=== PATIENT | female | born 1940 | race Caucasian/White ===

== ENCOUNTER 2019-09-10 11:12 | Observation (INO) | payer MEDICARE, BC ==
--- OUTSIDE RECORDS SUMMARY | 2019-09-10 11:39 | XMS REPORT | Continuity of Care Document ---
:1940 External Reference #:[id number] Author Name Bowen Chin MD Address [address] [place] [address] Care Team Providers Name Role Phone Celia Moraes M.D. - Magnetic Care Team Information Qlikview Developer [phone] Resonance Imaging (MRI) Nunu Dotson F.N.P. - Family Care Team Information Qlikview Developer Problems Active Problems Provider Date Retention of urine ESPERANZA Otto Onset: 09/09/2017 History of chronic urinary tract infection Ralph Jason MD Onset: 08/2016 Microscopic hematuria Ralph Jason MD Onset: 07/19/2016 Nocturia Ralph Jason MD Onset: 01/29/2016 Atrophic vaginitis Ralph Jason MD Onset: 11/25/2014 Mixed urinary incontinence Ralph Jason MD Onset: 11/25/2014 Midline cystocele Ralph Jason MD Onset: 11/25/2014 Urinary Urgency Ralph Jason MD Onset: 11/25/2014 Nocturia Ralph Jason MD Onset: 11/25/2014 Backache Ralph Jason MD Onset: 11/25/2014 Urinary tract infectious disease Ralph Jason MD Onset: 11/25/2014 Social History Type Date Description Comments Sex Unknown Tobacco Use Start: Unknown Never Smoked Cigarettes ETOH Use Patient denies alcohol use Tobacco Use Start: Unknown Patient has never smoked Smoking Status Reviewed: 06/14/19 Patient has never smoked Allergies, Adverse Reactions, Alerts Active Allergies Reaction Severity Comments Date Codeine Nausea and Vomiting 11/25/2014 Sulfa Nausea and Vomiting 11/25/2014 Ultram Nausea and Vomiting 11/25/2014 Medications Active Medications SIG Qnty Indications Ordering Date Provider Doxycycline Hyclate 1 by mouth 14caps Ralph Verduzco 06/14/2019 100mg Capsules twice a day x MD Casie 7 days Myrbetriq 1 by mouth 30tabs R35.1 Bowen Marques 05/01/2019 25mg Tablets ER 24HR every day MD Elsy Oxybutynin Chloride ER 1 by mouth 90tabs [facility] 03/08/2017 10mg Tablets every day MD Casie ER 24HR Ciprofloxacin HCL 1 by mouth 30tabs N39.0 [facility] 07/19/2016 250mg Tablets twice a day x MD Casie 3 days for sx uti, december repeat Ranitidine HCL Santhosh Landry, 150mg Tablets M.D. Rbwgg-0-Ikas Ethyl Esters [facility], 1gm M.DFarideh Capsules Meclizine HCL LoboftNunu farfan, 25mg Tablets F.N.P. Atorvastatin Calcium [facility], 20mg Tablets M.D. Cartia XT [facility], 120mg Caps ER 24HR M.DFarideh Butalbital/Acetaminophen/Ca Unknown ffeine 50-300-40mg Capsules Losartan Potassium take 1 tablet Unknown 50mg Tablets by mouth once daily Hydrochlorothiazide Rosalioishminerva, 12.5mg Tablets Charlie Valentine Buspirone HCL Unknown 15mg Tablets Duloxetine HCL Unknown 60mg Caps DR Alfonso Anastrozole 1 tablet Unknown 1mg Tablets every night Nortriptyline HCL 1 by mouth Unknown Capsules every day Tricor 1 by mouth Unknown 145mg Tablets every day Vitamin D (Ergocalciferol) Unknown 89492Brul Capsules Mobic 1 by mouth Unknown 7.5mg Tablets every day Synthroid 1 by mouth Unknown 75mcg Tablets every day Dexilant 30 mg qd Unknown 60mg Capsules DR Anna 1 by mouth Unknown 60mg Caps DR Alfonso every day History Medications Cefuroxime Axetil take 1 tablet by 14tabs [facility] 05/03/2019 - 250mg mouth twice daily MD Casie 06/13/2019 Tablets x 7 days Amoxicillin 1 cap orally in Bowen Chin, 05/01/2019 - 250mg office for 05/02/2019 Capsules procedure Cefuroxime Axetil take 1 tablet by izzy Verduzco 04/12/2019 - 250mg mouth twice daily MD Casie 04/30/2019 Tablets x 7 days Immunizations Description No Information Available Vital Signs Date Vital Result Comment 07/20/2019 11:28am Height 62 inches 5'2" Weight 127.00 lb Weight 57.607 kg BMI (Body Mass Index) 23.2 kg/m2 BP Systolic 120 mmHg BP Diastolic 67 mmHg Heart Rate 97 /min 06/14/2019 1:47pm BP Systolic 136 mmHg BP Diastolic 84 mmHg Heart Rate 85 /min Post Void Residual ml 50RAD Results Test Acquired Date Facility Test Result H/L Range Note 230 Ua Routine 07/20/2019 [facility] Ua Glucose Negative REF TO DR ADDRESS ON ORDER FOR (981)- - Ua Protein Negative Ua Nitrite Positive Ua Leuko 2+ Ua Blood Trace-intact Ua Color Not Entered Ua Ketones Negative Ua Clarity Not Entered Ua Specific [place] 1.020 1.003-1.030 Ua PH 7.0 5.0-7.5 Ua Bilirubin Negative Ua Urobilinogen 0.2 E.U./dL 0.0-1.0 Laboratory test 06/14/2019 [facility] Urine Culture SPECIMEN < 10k 1 finding POB FX# [id number] DESCRIP <SEE [phone] NOTE> 230 Ua Routine 06/14/2019 [facility] Ua Glucose Negative REF TO DR ADDRESS ON ORDER FOR (267)- - Ua Protein 1+ Ua Nitrite Negative Ua Leuko Trace Ua Blood 1+ Ua Color Not Entered Ua Ketones Negative Ua Clarity Not Entered Ua Specific [place] 1.025 1.003-1.030 Ua PH 6.5 5.0-7.5 Ua Bilirubin Negative Ua Urobilinogen 0.2 E.U./dL 0.0-1.0 Xray 06/14/2019 [facility] US Retroperitoneal med renal [address] [facility] [place] [id number] (Kidneys/Bladder) [phone] Laboratory 05/01/2019 Laboratory [place] Urine Culture SPECIMEN cefuroxime 2 test finding POB FX# [id number] DESCRIP [phone] <SEE NOTE> Urine 05/01/2019 [facility] Clinical History R31.21 Normal Cytology [address] [place] [address] [phone] Comments Sent to Rashaad Marques <SEE NOTE> Normal 3 Specimen Adequacy Satisfactory for <SEE NOTE> Normal 4 BodySite Voided - Clean C <SEE NOTE> Normal 5 Gross Description Received in a sp <SEE NOTE> Normal 6 CPTCode 41906 Normal PDF Report SEE IMAGE 230 Ua Routine 05/01/2019 [facility] Ua Glucose Negative REF TO DR ADDRESS ON ORDER FOR (573)- - Ua Protein 2+ Ua Nitrite Positive Ua Leuko 3+ Ua Blood 2+ Ua Color Not Entered Ua Ketones Negative Ua Clarity Not Entered Ua Specific [place] 1.020 1.003-1.030 Ua PH 7.0 5.0-7.5 Ua Bilirubin Negative Ua Urobilinogen 0.2 E.U./dL 0.0-1.0 Laboratory test 04/10/2019 Laboratory [place] Urine SPECIMEN cefuroxime 7 finding POB FX# [id number] Culture DESCRIP <SEE [phone] NOTE> 230 Ua Routine 04/10/2019 [facility] Ua Glucose Negative REF TO DR ADDRESS ON ORDER FOR (953)- - Ua Protein 1+ Ua Nitrite Negative Ua Leuko 1+ Ua Blood 2+ Ua Color Not Entered Ua Ketones Negative Ua Clarity Not Entered Ua Specific [place] 1.020 1.003-1.030 Ua PH 6.0 5.0-7.5 Ua Bilirubin Negative Ua Urobilinogen 0.2 E.U./dL 0.0-1.0 1 SPECIMEN DESCRIPTION URINE, COLLECTION METHOD NOT SPECIFIED CULTURE RESULTS <10,000 CFU/ML REPRESENTING URETHRAL ESMER REPORT STATUS FINAL 06/15/2019 2 SPECIMEN DESCRIPTION MIDSTREAM URINE,CLEAN CATCH CULTURE RESULTS >100,000 CFU/ML KLEBSIELLA PNEUMONIAE REPORT STATUS FINAL 05/03/2019 ORGANISM KLEBSIELLA PNEUMONIAE METHOD MONICA AMIKACIN <=2 SUSCEPTIBLE AMOXICILLIN/CLAVULANIC AC <=2/1 SUSCEPTIBLE AMPICILLIN 16 RESISTANT ISOLATES SUSCEPTIBLE TO AMPICILLIN ARE ALSO SUSCEPTIBLE TO AMOXICILLIN. CEFAZOLIN <=4 SUSCEPTIBLE FOR UNCOMPLICATED UTI'S,CEFAZOLIN MONICA RESULTS LESS THAN OR EQUAL TO 16 MCG/ML PREDICT SUSCEPTIBILITY OF THE FOLLOWING ORAL CEPHALOSPORINS:CEFACLOR,CEFDINIR, CEFPODOXIME,CEFPROZIL,CEFUROXIME AND CEPHALEXIN. IMPORTANT NOTE FOR COMPLICATED INFECTIONS SUCH UROSEPSIS CEFAZOLIN SHOULD HAVE A MONICA OF LESS THAN OR EQUAL TO 2 TO BE CONSIDERED SUSCEPTIBLE. CONTACT MICROBIOLOGY FOR FURTHER TESTING IF WARRANTED. CEFEPIME <=1 SUSCEPTIBLE CEFOXITIN <=4 SUSCEPTIBLE CEFTAZIDIME <=1 SUSCEPTIBLE CEFTRIAXONE <=1 SUSCEPTIBLE CIPROFLOXACIN <=0.25 SUSCEPTIBLE GENTAMICIN <=1 SUSCEPTIBLE LEVOFLOXACIN <=0.12 SUSCEPTIBLE MEROPENEM <=0.25 SUSCEPTIBLE NITROFURANTOIN 32 SUSCEPTIBLE PIPERACILLIN/TAZOBACTAM <=4 SUSCEPTIBLE TETRACYCLINE <=1 SUSCEPTIBLE TOBRAMYCIN <=1 SUSCEPTIBLE TRIMETH/SULFA <=1/19 SUSCEPTIBLE ERTAPENEM <=0.5 SUSCEPTIBLE 3 Sent to [employer] for professional services: [address] [place] [address] 4 Satisfactory for evaluation. 5 Voided - Clean Catch 6 Received in a specimen container, labeled with the patients name and , is Cloudy Yellow fluid consistent with urine, measuring approximately 40 ml. 7 SPECIMEN DESCRIPTION MIDSTREAM URINE,CLEAN CATCH CULTURE RESULTS >100,000 CFU/ML KLEBSIELLA PNEUMONIAE REPORT STATUS FINAL 04/12/2019 ORGANISM KLEBSIELLA PNEUMONIAE METHOD MONICA AMIKACIN <=2 SUSCEPTIBLE AMOXICILLIN/CLAVULANIC AC 4/2 SUSCEPTIBLE AMPICILLIN 16 RESISTANT ISOLATES SUSCEPTIBLE TO AMPICILLIN ARE ALSO SUSCEPTIBLE TO AMOXICILLIN. CEFAZOLIN <=4 SUSCEPTIBLE FOR UNCOMPLICATED UTI'S,CEFAZOLIN MONICA RESULTS LESS THAN OR EQUAL TO 16 MCG/ML PREDICT SUSCEPTIBILITY OF THE FOLLOWING ORAL CEPHALOSPORINS:CEFACLOR,CEFDINIR, CEFPODOXIME,CEFPROZIL,CEFUROXIME AND CEPHALEXIN. IMPORTANT NOTE FOR COMPLICATED INFECTIONS SUCH UROSEPSIS CEFAZOLIN SHOULD HAVE A MONICA OF LESS THAN OR EQUAL TO 2 TO BE CONSIDERED SUSCEPTIBLE. CONTACT MICROBIOLOGY FOR FURTHER TESTING IF WARRANTED. CEFEPIME <=1 SUSCEPTIBLE CEFOXITIN <=4 SUSCEPTIBLE CEFTAZIDIME <=1 SUSCEPTIBLE CEFTRIAXONE <=1 SUSCEPTIBLE CIPROFLOXACIN <=0.25 SUSCEPTIBLE GENTAMICIN <=1 SUSCEPTIBLE LEVOFLOXACIN <=0.12 SUSCEPTIBLE MEROPENEM <=0.25 SUSCEPTIBLE NITROFURANTOIN 128 RESISTANT PIPERACILLIN/TAZOBACTAM <=4 SUSCEPTIBLE TETRACYCLINE 2 SUSCEPTIBLE TOBRAMYCIN <=1 SUSCEPTIBLE TRIMETH/SULFA <=1/19 SUSCEPTIBLE ERTAPENEM <=0.5 SUSCEPTIBLE Procedures Date Code Description Status 06/14/2019 16330 Ultrasound Retro Renal Real Time With Image Tech Comp Completed 06/14/2019 96722 Ultrasound Retro Renal Real Time With Image Tech Comp Completed 05/01/2019 98641 Cystourethroscopy, Separate Procedure Completed 04/10/2019 09219 Bladder Scan, Post Voiding Residual Urine Completed Medical Devices Description No Information Available Encounters Type Date Location Provider Dx Diagnosis Office Visit 07/20/2019 [facility] Bowen Chin, R31.21 Asymptomatic 11:20a Urology microscopic hematuria N39.0 Urinary tract infection, site not specified N81.11 Cystocele, midline R33.8 Other retention of urine R35.1 Nocturia N95.2 Postmenopausal atrophic vaginitis Office Visit 06/14/2019 1:40p [facility]/ A.M.PFarideh Cuevas R31.29 Other microscopic Urology ESPERANZA De La Garza hematuria N39.0 Urinary tract infection, site not specified Office Visit 04/10/2019 11:20a [facility]/ A.M.PFarideh Marques N81.11 Cystocele, Urology MD Elsy midline R33.8 Other retention of urine R35.1 Nocturia N95.2 Postmenopausal atrophic vaginitis R31.21 Asymptomatic microscopic hematuria Z87.440 Personal history of urinary (tract) infections Assessments Date Code Description Provider 07/20/2019 R31.21 Asymptomatic microscopic hematuria Bowen Chin MD 07/20/2019 N39.0 Urinary tract infection, site not specified Bowen Chin MD 07/20/2019 N81.11 Cystocele, midline Bowen Chin MD 07/20/2019 R33.8 Other retention of urine Bowen Chin MD 07/20/2019 R35.1 Nocturia Bowen Chin MD 07/20/2019 N95.2 Postmenopausal atrophic vaginitis Bowen Chin MD 06/14/2019 R31.21 Asymptomatic microscopic hematuria Bowen Chin MD 06/14/2019 R31.21 Asymptomatic microscopic hematuria [facility] 06/14/2019 R31.29 Other microscopic hematuria ESPERANZA Gardiner 06/14/2019 N39.0 Urinary tract infection, site not specified ESPERANZA Gardiner 05/01/2019 R31.21 Asymptomatic microscopic hematuria Leo Pineda MD 05/01/2019 N81.11 Cystocele, midline Bowen Chin MD 05/01/2019 R33.8 Other retention of urine Bowen Chin MD 05/01/2019 R35.1 Nocturia Bowen Chin MD 05/01/2019 N95.2 Postmenopausal atrophic vaginitis Bowen Chin MD 05/01/2019 R31.21 Asymptomatic microscopic hematuria Bowen Chin MD 04/10/2019 N81.11 Cystocele, midline Bowen Chin MD 04/10/2019 R33.8 Other retention of urine Bowen Chin MD 04/10/2019 R35.1 Nocturia Bowen Chin MD 04/10/2019 N95.2 Postmenopausal atrophic vaginitis Bowen Chin MD 04/10/2019 R31.21 Asymptomatic microscopic hematuria Bowen Chin MD 04/10/2019 Z87.440 Personal history of urinary (tract) infections Bowen Chin MD Plan of Treatment Future Appointment(s):08/17/2019 1:20 pm - Bowen Chin MD at [facility] Dwdbjmq56/13/2019 - Bowen Chin, MDR31.21 Asymptomatic microscopic hematuriaComments:Rescheduled for interval cystoscopy after treatment of current UTI.N39.0 Urinary tract infection, site not specifiedNew Labs:Urine Culture, Ordered: 07/20/19Comments:Sent urine cultureStart Cipro 250 mg PO BID today #14N81.11 Cystocele, midlineComments:Consider pelvic floor vpqfcjyP21.8 Other retention of urineComments:Advised times nfvweO72.1 NocturiaComments: Continue Oxybutinin XL 10 mg qd SPGConsider pelvic floor jykgvjyX67.2 Postmenopausal atrophic vaginitisAllFollow up:Cystoscopy 2 weeks. Functional Status Description No Information Available Mental Status Description No Information Available Referrals Description No Information Available
--- OUTSIDE RECORDS SUMMARY | 2019-09-10 11:39 | XMS REPORT | Continuity of Care Document ---
:1940 External Reference #:[id number] Author Name Migue Chase MD (transmitted by agent of provider Kelsy Baires) Address [address], [address] [place] [address] Care Team Providers Name Role Phone Kyle Henley MD - Internal Medicine Care Team Information Arresting Gear Operator [phone] Visiting Nurse Services [facility] - Care Team Information Arresting Gear Operator [facility] Celia Moraes M.D. - Internal Care Team Information Arresting Gear Operator [phone] Medicine Problems Active Problems Provider Date Instability of internal right knee prosthesis, Sarina Valentino M.D. Onset: 04/2018 subsequent encounter Social History Type Date Description Comments Sex Unknown Tobacco Use Start: Unknown Never Smoked Cigarettes Smoking Status Reviewed: 08/28/19 Never Smoked Cigarettes ETOH Use Denies alcohol use Tobacco Use Start: Unknown Patient has never smoked Recreational Drug Use Denies Drug Use Exercise Type/Frequency Does not exercise Limited by breathing issue Allergies, Adverse Reactions, Alerts Active Allergies Reaction Severity Comments Date Sulfa Antibiotics Nausea Moderate 01/05/2013 Codeine Nausea 08/28/2019 Ultram Nausea 08/28/2019 Medications Active Medications SIG Qnty Indications Ordering Date Provider Oxygen please use o2 at 1units R06.00 Migue Chase Misc 2l/min during MD 0 exertion and at night. pls provide pt with portable o2 concentrator [id number] Ethyl Esters 1 capsules 2 x/day Unknown 1gm 0 Capsules Meclizine HCL 1 tablet every 8 Unknown 25mg Tablets hours as needed 0 for vertigo Myrbetriq TK 1 T PO Q Day Unknown 25mg Tablets ER 24HR 0 Vitamin D2 1 2000 unit and 1 Unknown 2000Unit Tablets 5000 unit by mouth 0 everyday Tricor 1 by mouth every Unknown 145mg Tablets day 0 Synthroid 1 by mouth every Unknown 75mcg Tablets day 0 Oxybutynin Chloride ER 1 by mouth every Unknown 10mg day 0 Tablets ER 24HR Nortriptyline HCL 3 by mouth once Unknown 50mg Capsules daily 0 Nitrostat one sl q5min up to Unknown 0.4mg Tablets Sub 3 doses as needed 0 Mobic 1 by mouth every Unknown 7.5mg Tablets day 0 Losartan Potassium 1 by mouth every Unknown 50mg Tablets day 0 Lipitor one tab by mouth Unknown 20mg Tablets every night at 0 bedtime Hydrochlorothiazide 1 by mouth every Unknown 12.5mg day 0 Capsules Folic Acid 1 by mouth daily Unknown 400mcg Tablets 0 Fioricet 1 by mouth twice a Unknown 50-300-40mg Capsules day as needed 0 headache max 2 days/wk Diltiazem CD 1 by mouth every Unknown 120mg Caps ER 24HR day 0 Dexilant 1 by mouth every Unknown 60mg Capsules DR day 0 Cymbalta 2 by mouth every Unknown 30mg Caps DR Part day 0 Buspirone HCL take one tablet by Unknown 15mg Tablets mouth twice a day 0 Anastrozole 1 by mouth per day Unknown 1mg Tablets 0 Medications Administered in Office Medication SIG Qnty Indications Ordering Provider Date Depomedrol 40MG Brionna Bacon M.D. 06/11/2019 Injection Immunizations Description No Information Available Vital Signs Date Vital Result Comment 08/28/2019 9:28am Height 60 inches 5'0" Weight 128.00 lb Per pt, this morning Heart Rate 94 /min BP Systolic Sitting 142 mmHg Rue reg cuff BP Diastolic Sitting 80 mmHg Rue reg cuff O2 % BldC Oximetry 90 % On Ra BMI (Body Mass Index) 25.0 kg/m2 06/11/2019 2:40pm Height 60 inches 5'0" Weight 127.38 lb Heart Rate 82 /min BP Systolic Sitting 118 mmHg BP Diastolic Sitting 71 mmHg Respiratory Rate 16 /min Pain Level 0 O2 % BldC Oximetry 91 % BMI (Body Mass Index) 24.9 kg/m2 Results Description No Information Available Procedures Date Code Description Status 06/11/2019 Aspiration &/Or Inj Of Ganglion Cyst(S) Any Location Completed Medical Devices Description No Information Available Encounters Type Date Location Provider Dx Diagnosis Office Visit 06/11/2019 [facility] Brionna Bacon, M19.212 Secondary 1:45p at [facility].Justin osteoarthritis, left shoulder M67.412 Ganglion, left shoulder Assessments Date Code Description Provider 08/28/2019 R06.00 Dyspnea, unspecified Migue Chase MD 08/28/2019 G47.30 Sleep apnea, unspecified Migue Chase MD 06/11/2019 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 06/11/2019 M67.412 Ganglion, left shoulder Brionna Bacon M.D. Plan of Treatment 08/28/2019 - Migue Chase MDR06.00 Dyspnea, unspecifiedNew Medication:Oxygen - please use o2 at 2l/min during exertion and at night. pls provide pt with portable o2 concentratorComments:At this time we will do full pulmonary function test with a methacholine challenge test 6 minute walkand we will order a VQ scan lower extreme Dopplers and an overnight oximetry. we will [facility] to get the report of an echocardiogram. The patient did desaturate to 85% in the 6 minute walk at the clinic. Her desaturation was at fourth minute. Sheis recommended to use oxygen with activity.Follow up:1 month.G47.30 Sleep apnea, unspecifiedComments: She is using oxygen at night. She should exercise care when driving or operating heavy machinery. Functional Status Description No Information Available Mental Status Description No Information Available Referrals Description No Information Available
--- OUTSIDE RECORDS SUMMARY | 2019-09-10 11:39 | XMS REPORT | Continuity of Care Document ---
:1940 External Reference #:[id number] Author Name Rachel Garcia MD (transmitted by agent of provider Melody Jang) Address [address], [address] [place] [address] Care Team Providers Name Role Phone Kyle Henley MD - Internal Medicine Care Team Information Office Professionals [phone] Visiting Nurse Services [facility] - Care Team Information Office Professionals [facility] Celia Moraes M.D. - Internal Care Team Information Office Professionals [phone] Medicine Problems Active Problems Provider Date Instability of internal right knee prosthesis, Sarina Valentino M.D. Onset: 04/2018 subsequent encounter Social History Type Date Description Comments Sex Unknown ETOH Use Denies alcohol use Tobacco Use Start: Unknown Patient has never smoked Smoking Status Reviewed: 06/11/19 Patient has never smoked Allergies, Adverse Reactions, Alerts Active Allergies Reaction Severity Comments Date Sulfa Antibiotics Moderate 01/05/2013 Medications Active Medications SIG Qnty Indications Ordering Date Provider Amoxicillin 4 tablets 1 16caps Porter Frost, 02/12/2013 500mg Capsules hour before M.D. dental work Vitamin D2 1 by mouth Unknown 2000Unit Tablets everyday Tricor 1 by mouth Unknown 145mg Tablets every day Synthroid 1 by mouth Unknown 75mcg Tablets every day Oxybutynin Chloride ER 1 by mouth Unknown 10mg every day Tablets ER 24HR Nortriptyline HCL take one Unknown 50mg Capsules capsule at night Nitrostat one sl q5min up Unknown 0.4mg Tablets Sub to 3 doses as needed Mobic 1 by mouth Unknown 7.5mg Tablets every day Losartan Potassium 1 by mouth Unknown 50mg Tablets every day Lipitor one tab by Unknown 20mg Tablets mouth every night at bedtime Hydrochlorothiazide 1 by mouth Unknown 12.5mg every day Capsules Folic Acid Unknown 800mcg Tablets Fioricet 1 by mouth Unknown 50-300-40mg Capsules twice a day as needed headache max 2 days/wk Diltiazem CD 1 by mouth Unknown 120mg Caps ER 24HR every day Dexilant 1 by mouth Unknown 60mg Capsules DR every day Cymbalta 1 by mouth Unknown 60mg Caps DR Part every day Buspirone HCL take one tablet Unknown 15mg Tablets by mouth twice a day Anastrozole Unknown 1mg Tablets Medications Administered in Office Medication SIG Qnty Indications Ordering Provider Date Depomedrol 40MG Brionna Bacon M.D. 06/11/2019 Injection Immunizations Description No Information Available Vital Signs Date Vital Result Comment 06/11/2019 2:40pm Height 60 inches 5'0" Weight 127.38 lb Heart Rate 82 /min BP Systolic Sitting 118 mmHg BP Diastolic Sitting 71 mmHg Respiratory Rate 16 /min Pain Level 0 O2 % BldC Oximetry 91 % BMI (Body Mass Index) 24.9 kg/m2 05/19/2018 1:01pm Height 61 inches 5'1" Weight 225.00 lb BP Systolic 111 mmHg BP Diastolic 64 mmHg Respiratory Rate 16 /min Pain Level 4 BMI (Body Mass Index) 42.5 kg/m2 Results Description No Information Available Procedures Date Code Description Status 06/11/201958652 Aspiration &/Or Inj Of Ganglion Cyst(S) Any Location Completed Medical Devices Description No Information Available Encounters Type Date Location Provider Dx Diagnosis Office Visit 06/11/2019 [facility] Brionna Bacon, M19.212 Secondary 1:45p at [place] Charlie osteoarthritis, left shoulder M67.412 Ganglion, left shoulder Assessments Date Code Description Provider 06/11/2019 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 06/11/2019 M67.412 Ganglion, left shoulder Brionna Bacon M.D. Plan of Treatment 06/11/2019 - Brionna Bacon M.D.M19.212 Secondary osteoarthritis, left shoulderFollow up:Follow up: As [id number] Ganglion, left shoulder Functional Status Description No Information Available Mental Status Description No Information Available Referrals Description No Information Available
--- OUTSIDE RECORDS SUMMARY | 2019-09-10 11:39 | XMS REPORT | Continuity of Care Document ---
:1940 External Reference #:[id number] Author Name Bowen Chin MD Address [address] [place] [address] Care Team Providers Name Role Phone Celia Moraes M.D. - Magnetic Care Team Information Design Lead [phone] Resonance Imaging (MRI) Nunu Dotson F.N.P. - Family Care Team Information Design Lead [phone] Problems Active Problems Provider Date Retention of urine ESPERANZA Otto Onset: 09/09/2017 History of chronic urinary tract infection Ralph Jason MD Onset: 08/2016 Microscopic hematuria Ralph Jason MD Onset: 07/19/2016 Nocturia Ralph Jason MD Onset: 01/29/2016 Atrophic vaginitis Ralph aJson MD Onset: 11/25/2014 Mixed urinary incontinence Ralph [...] Medications SIG Qnty Indications Ordering Date Provider Myrbetriq 1 by mouth 30tabs R35.1 Bowen Marques 05/01/2019 25mg Tablets ER 24HR every day MD Elsy Oxybutynin Chloride ER 1 by mouth 90tabs [facility] 03/08/2017 10mg Tablets every day MD Casie ER 24HR Ranitidine HCL Santhosh Landry, 150mg Tablets M.DFarideh Bygsy-6-Peqc Ethyl Esters [place] [facility], 1gm M.DFarideh Capsules Meclizine HCL LoboftNunu farfan, 25mg Tablets F.N.P. Atorvastatin Calcium [facility], 20mg Tablets M.D. Cartia XT [facility], 120mg Caps ER 24HR M.DFarideh Butalbital/Acetaminophen/Ca Unknown ffeine 50-300-40mg Capsules Losartan Potassium take 1 tablet Unknown 50mg Tablets by mouth once daily Hydrochlorothiazide Alix, 12.5mg Tablets Charlie Valentine Buspirone HCL Unknown 15mg Tablets Duloxetine HCL Unknown 60mg Caps DR Alfonso Anastrozole 1 tablet Unknown 1mg Tablets every night Nortriptyline HCL 1 by mouth Unknown Capsules every day Tricor 1 by mouth Unknown 145mg Tablets every day Vitamin D (Ergocalciferol) Unknown [id number] Capsules Mobic 1 by mouth Unknown 7.5mg Tablets every day Synthroid 1 by mouth Unknown 75mcg Tablets every day Dexilant 30 mg qd Unknown 60mg Capsules DR Anna 1 by mouth Unknown 60mg Caps DR Alfonso every day History Medications Doxycycline Hyclate 1 by mouth twice a 14caps [facility] 06/14/2019 - day x 7 days MD Casie 08/16/2019 100mg Capsules Cefuroxime Axetil take 1 tablet by 14tabs [facility] 05/03/2019 - 250mg mouth twice daily MD Casie 06/13/2019 Tablets x 7 days Amoxicillin 1 cap orally in Bowen Chin, 05/01/2019 - 250mg office for 05/02/2019 Capsules procedure Cefuroxime Axetil take 1 tablet by izzy Verduzco 04/12/2019 - 250mg mouth twice daily MD Casie 04/30/2019 Tablets x 7 days Immunizations Description No Information Available Vital Signs Date Vital Result Comment 08/17/2019 1:28pm Height 62 inches 5'2" Weight 127.00 lb Weight 57.607 kg BMI (Body Mass Index) 23.2 kg/m2 BP Systolic 127 mmHg BP Diastolic 76 mmHg Heart Rate 102 /min 07/20/2019 11:28am Height 62 inches 5'2" Weight 127.00 lb Weight 57.607 kg BMI (Body Mass Index) 23.2 kg/m2 BP Systolic 120 mmHg BP Diastolic 67 mmHg Heart Rate 97 /min Results Test Acquired Date Facility Test Result H/L Range Note 230 Ua Routine 08/17/2019 [facility] Ua Glucose Negative REF TO DR ADDRESS ON ORDER FOR (315)- - Ua Protein Negative Ua Nitrite Positive Ua Leuko 1+ Ua Blood Negative Ua Color Not Entered Ua Ketones Negative Ua Clarity Not Entered Ua Specific [place] 1.020 1.003-1.030 Ua PH 6.5 5.0-7.5 Ua Bilirubin Negative Ua Urobilinogen 0.2 E.U./dL 0.0-1.0 Laboratory test 07/20/2019 [facility] Urine Culture SPECIMEN 1 finding POB FX# [id number] DESCRIP <SEE [phone] NOTE> 230 Ua Routine 07/20/2019 [facility] Ua Glucose Negative REF TO DR ADDRESS ON ORDER FOR (495)- - Ua Protein Negative Ua Nitrite Positive Ua Leuko 2+ Ua Blood Trace-intact Ua Color Not Entered Ua Ketones Negative Ua Clarity Not Entered Ua Specific [place] 1.020 1.003-1.030 Ua PH 7.0 5.0-7.5 Ua Bilirubin Negative Ua Urobilinogen 0.2 E.U./dL 0.0-1.0 Laboratory test 06/14/2019 [facility] Urine Culture SPECIMEN < 10k 2 finding POB FX# [id number] DESCRIP <SEE [phone] NOTE> 230 Ua Routine 06/14/2019 [facility] Ua Glucose Negative REF TO DR ADDRESS ON ORDER FOR (315)- - Ua Protein 1+ Ua Nitrite Negative Ua Leuko Trace Ua Blood 1+ Ua Color Not Entered Ua Ketones Negative Ua Clarity Not Entered Ua Specific [place] 1.025 1.003-1.030 Ua PH 6.5 5.0-7.5 Ua Bilirubin Negative Ua Urobilinogen 0.2 E.U./dL 0.0-1.0 Xray 06/14/2019 [facility] US Retroperitoneal med renal [address] [facility] [place] [address] (Kidneys/Bladder) [phone] Laboratory 05/01/2019 [facility] Urine Culture SPECIMEN cefuroxime 3 test finding POB FX# [id number] DESCRIP [phone] <SEE NOTE> Urine 05/01/2019 [facility] Clinical History R31.21 Normal Cytology [address] [place] [address] [phone] Comments Sent to Rashaad Marques <SEE NOTE> Normal 4 Specimen Adequacy Satisfactory for <SEE NOTE> Normal 5 BodySite Voided - Clean C <SEE NOTE> Normal 6 Gross Description Received in a sp <SEE NOTE> Normal 7 CPTCode 42776 Normal PDF Report SEE IMAGE 230 Ua Routine 05/01/2019 [facility] Ua Glucose Negative REF TO DR ADDRESS ON ORDER FOR (315)- - Ua Protein 2+ Ua Nitrite Positive Ua Leuko 3+ Ua Blood 2+ Ua Color Not Entered Ua Ketones Negative Ua Clarity Not Entered Ua Specific [place] 1.020 1.003-1.030 Ua PH 7.0 5.0-7.5 Ua Bilirubin Negative Ua Urobilinogen 0.2 E.U./dL 0.0-1.0 Laboratory test 04/10/2019 [facility] Urine SPECIMEN cefuroxime 8 finding POB FX# [id number] Culture DESCRIP <SEE [phone] NOTE> 230 Ua Routine 04/10/2019 [facility] Ua Glucose Negative REF TO DR ADDRESS ON ORDER FOR (315)- - Ua Protein 1+ Ua Nitrite Negative Ua Leuko 1+ Ua Blood 2+ Ua Color Not Entered Ua Ketones Negative Ua Clarity Not Entered Ua Specific [place] 1.020 1.003-1.030 Ua PH 6.0 5.0-7.5 Ua Bilirubin Negative Ua Urobilinogen 0.2 E.U./dL 0.0-1.0 1 SPECIMEN DESCRIPTION CATHETER,STRAIGHT CULTURE RESULTS <10,000 CFU/ML REPRESENTING URETHRAL ESMER REPORT STATUS FINAL 07/21/2019 2 SPECIMEN DESCRIPTION URINE, COLLECTION METHOD NOT SPECIFIED CULTURE RESULTS <10,000 CFU/ML REPRESENTING URETHRAL ESMER REPORT STATUS FINAL 06/15/2019 3 SPECIMEN DESCRIPTION MIDSTREAM URINE,CLEAN CATCH CULTURE RESULTS [...] SUSCEPTIBLE TRIMETH/SULFA <=1/19 SUSCEPTIBLE ERTAPENEM <=0.5 SUSCEPTIBLE 4 Sent to [email or web address] for professional services: [address] [place] [address] 5 Satisfactory for evaluation. 6 Voided - Clean Catch 7 Received in a specimen container, labeled with the patients name and , is Cloudy Yellow fluid consistent with urine, measuring approximately 40 ml. 8 SPECIMEN DESCRIPTION MIDSTREAM URINE,CLEAN CATCH CULTURE RESULTS [...] <=0.5 SUSCEPTIBLE Procedures Date Code Description Status 07/20/2019 33546 Catheterization, Single Spec Collection - Medicare Only Completed 06/14/2019 49034 Ultrasound Retro Renal Real Time With Image Tech Comp Completed 06/14/2019 29987 Ultrasound Retro Renal Real Time With Image Tech Comp Completed 05/01/2019 08165 Cystourethroscopy, Separate Procedure Completed 04/10/2019 65023 Bladder Scan, Post Voiding Residual Urine Completed Medical Devices Description No Information Available Encounters Type Date Location Provider Dx Diagnosis Office Visit 07/20/2019 [facility]/ [facility].M.Maria De Jesus Chin, R31.21 Asymptomatic 11:20a Urology microscopic hematuria N39.0 Urinary tract infection, site not specified N81.11 Cystocele, midline R33.8 Other retention of urine R35.1 Nocturia N95.2 Postmenopausal atrophic vaginitis Office Visit 06/14/2019 1:40p [facility]/ [facility].MWaldo Cuevas R31.29 Other microscopic Urology ESPERANZA De La Garza hematuria N39.0 Urinary tract infection, site not specified Office Visit 04/10/2019 11:20a [facility]/ [facility].M.Maria De Jesus Marques N81.11 Cystocele, Urology MD Elsy midline R33.8 Other retention of urine R35.1 Nocturia N95.2 Postmenopausal atrophic vaginitis R31.21 Asymptomatic microscopic hematuria Z87.440 Personal history of urinary (tract) infections Assessments Date Code Description Provider 08/17/2019 R31.21 Asymptomatic microscopic hematuria Bowen Chin MD 08/17/2019 N81.11 Cystocele, midline Bowen Chin MD 08/17/2019 R33.8 Other retention of urine Bowen Chin MD 08/17/2019 R35.1 Nocturia Bowen Chin MD 08/17/2019 N95.2 Postmenopausal atrophic vaginitis Bowen Chin MD 07/20/2019 R31.21 Asymptomatic microscopic hematuria Bowen Chin MD 07/20/2019 N39.0 Urinary tract infection, site not specified Bowen Chin MD 07/20/2019 N81.11 Cystocele, midline Bowen Chin MD 07/20/2019 R33.8 Other retention of urine Bowen Chin MD 07/20/2019 R35.1 Nocturia Bowen Chin MD 07/20/2019 N95.2 Postmenopausal atrophic vaginitis Bowen Chin MD 06/14/2019 R31.21 Asymptomatic microscopic hematuria Bowen Chin MD 06/14/2019 R31.21 Asymptomatic microscopic hematuria [facility] 06/14/2019 R31.29 Other microscopic hematuria ESPERANZA Gardiner [...] Bowen Chin MD Plan of Treatment Future Appointment(s):08/24/2019 3:40 pm - Bowen Chin MD at [facility] Whzimns8808/17/2019 - Bowen Chin, MDR31.21 Asymptomatic microscopic hematuriaComments:Rescheduled for interval cystoscopy but will either perform at end of course required abx if culturetoday positive or will premedicate with abx 2-3 days prior.N81.11 Cystocele, midlineComments:Consider pelvic floor ndnzaloR30.8 Other retention of urineComments:Advised times kinjyE59.1 WruddetbH32.2 Postmenopausal atrophic vaginitisComments:Advised follow up with [facility] Can't use [facility] due to history of breast cancerAllFollow up:cystoscopy mid-late next week Functional Status Description No Information Available Mental Status Description No Information Available Referrals Description No Information Available
--- OUTSIDE RECORDS SUMMARY | 2019-09-10 11:39 | XMS REPORT | Continuity of Care Document ---
:1940 External Reference #:[id number] Author Name Chad López M.D. Address [address] [place] [address] Care Team Providers Name Role Phone Nunu Dotson Family Care Team Information Scaffolding Helper [phone] Problems Active Problems Provider Date Gastroesophageal reflux disease Onset: Irritable bowel syndrome Onset: Hypothyroidism Onset: Pure hypercholesterolemia Onset: Backache Onset: Migraine Onset: Depressive disorder Onset: Arthritis Onset: Lyme disease Onset: Tear film insufficiency Chad López M.D. Onset: 05/20/2015 Presence of intraocular lens Chad López M.D. Onset: 05/20/2015 Mild chronic obstructive pulmonary disease Chad López M.D. Onset: 06/08 Congestive heart failure Chad López M.D. Onset: 06/08/2016 Malignant neoplasm of female breast Chad López M.D. Onset: 06/08/2016 Conjunctival hemorrhage Nestor Dejesus M.D. Onset: 08/12/2016 Social History Type Date Description Comments Sex Unknown ETOH Use Rarely consumes alcohol Tobacco Use Start: Unknown Patient has never smoked Recreational Drug Use Denies Drug Use Smoking Status Reviewed: 08/16/19 Patient has never smoked Allergies, Adverse Reactions, Alerts Active Allergies Reaction Severity Comments Date Epinephrine 05/20/2015 Cortisone 05/20/2015 Medications Active Medications SIG Qnty Indications Ordering Date Provider Refresh 3-5 times a day Chad Conn 05/19/2015 1.4-0.6% Solution Charlie López Systane Ultra 3-5 times a day Chad Conn 05/19/2015 0.4-0.3% Solution Charlie López Vitamin E Unknown 400Unit Capsules Levothyroxine Sodium Celia Moraes 75mcg Tablets M.DFarideh Synthroid Unknown .075mg Tablets Diltiazem HCL ER Coated Unknown Beads 120mg Caps ER 24HR Anastrozole take 1 tablet Unknown 1mg Tablets by mouth once daily Myrbetriq Unknown 50mg Tablets ER 24HR Breo Ellipta Unknown 100-25mcg/Inh Aerosol Fenofibrate Unknown 145mg Tablets Duloxetine HCL Unknown 60mg Caps DR Alfonso Nitrostat Place 1 Tablet Unknown 0.4mg Tablets Sub Under The Tongue as Needed For Chest Pain as Directed Meloxicam Unknown 7.5mg Tablets Dexilant Unknown 60mg Capsules Atorvastatin Calcium Unknown 20mg Tablets Atenolol Unknown 25mg Tablets Nortriptyline HCL Unknown 50mg Capsules Utdavyarru-Zzuk-Gapvrrek Unknown 50-300-40mg Capsules Losartan Potassium Unknown 50mg Tablets Hydrochlorothiazide Unknown 12.5mg Capsules Hgokh-9-Clra Ethyl Esters Unknown 1gm Capsules Immunizations Description No Information Available Vital Signs Description No Information Available Results Description No Information Available Procedures Description No Information Available Medical Devices Description No Information Available Encounters Description No Information Available Assessments Date Code Description Provider 08/16/2019 H04.123 Dry eye syndrome of bilateral lacrimal Chad López M.D. glands 08/16/2019 Z96.1 Presence of intraocular lens Chad López M.D. 08/16/2019 H11.31 Conjunctival hemorrhage, right eye Chad López M.D. Plan of Treatment 08/16/2019 - Chad López M.D.H04.123 Dry eye syndrome of bilateral lacrimal glandsComments:Smoking can increase the risk of developing or worsening any eye related disease, as well as affect your overall health. If you are a smoker, we strongly recommend that you quit.If you are not a smoker, we strongly recommend that you do not start. Both of your eyes appear to be dry. Use artificial tears as directed. You can use the tears more often if you are reading a book or are on the computer,as we tend to blink less, making our eyes dry out more.[facility] offers a few items in our optical department to help alleviate dry eye symptoms. Systane and Refresh are good brands of tearsyou can use. You can pick these up at any pharmacy and they do not require a prescription.Follow up:1 Year Follow Up You can expect to have your eyes dilated at your next visit. If Dr. López orders any additional testing , it may require extra time. We recommend that you bring sunglasses, as dilationdrops often make you light sensitive until they wear off. We always recommend you bring someone to drive you home if you are uncomfortable driving with your eyes dilated. If you have any questions before your next visit, feel free to call our office at .z96.1 Presence of intraocular lensComments:The artificial lens implants in both eyes appear to be stable at this time.H11.31 Conjunctival hemorrhage, right eye Functional Status Description No Information Available Mental Status Description No Information Available Referrals Description No Information Available
--- OUTSIDE RECORDS SUMMARY | 2019-09-10 11:39 | XMS REPORT | Continuity of Care Document ---
:1940 Author Organization [facility] Support Name Relationship Address Phone ZELDA MOREL spouse [phone] [place] [address] ZELDA MOREL spouse [address] [place] [address] Allergies and Intolerances Code Code Allergy Type Reaction Severity Start End Date Status System Substance Date 2669 RXNorm Codeine Drug n/v Unknown Active allergy 1 (disorder) RXNorm Sulfa Drug n/v Unknown Active (Sulfonamide allergy 1 Antibiotics) (disorder) 3992 RXNorm Epinephrine Drug headache Unknown Active allergy 1 (disorder) 062968 RXNorm Ultram Drug Unknown Active allergy 1 (disorder) Medications RxNorm Medication Dose Route Instructions Start End Status Date Date 19910911 anastrozole 1 MG Oral 1 mg oral orally daily Active Tablet 192293 atorvastatin 20 MG 20 mg oral orally daily Active Oral Tablet 999598 buspirone 15 mg oral orally 2 times Active hydrochloride 15 MG per day Oral Tablet 2418 Cholecalciferol 7000 oral orally every Active unit morning 689131 dexlansoprazole 30 MG 30 mg oral orally daily Active Delayed Release Oral Capsule 3443 Diltiazem 120 mg oral orally daily Active 39304 duloxetine 120 mg oral orally daily Active 435728 Fenofibrate 145 MG 145 mg oral orally daily Active Oral Tablet 5487 Hydrochlorothiazide 12.5 mg oral orally every Active other day 75402 levothyroxine 75 mcg oral orally daily Active 338827 Losartan Potassium 50 50 mg oral orally daily Active MG Oral Tablet 399628 meloxicam 7.5 MG Oral 7.5 mg oral orally daily Active Tablet 662090 Nitroglycerin 0.4 MG 0.4 mg sublingual sublingually Active Sublingual Tablet every 5 minutes as needed. (until response; do not exceed 3 doses per episode) 19791111 Nortriptyline 10 MG 10 mg oral orally every Active Oral Capsule evening [place]ville-3 Fatty Acids 2000 mg oral orally 2 times Active per day 3012225 24 HR mirabegron 25 MG 25 mg oral orally daily Completed Extended Release Oral Tablet 165046 Acetaminophen 300 MG / 1 cap oral orally every 4 Completed butalbital 50 MG / hours as Caffeine 40 MG Oral needed. Capsule 786661 Acetaminophen 325 MG / 1 tab oral orally every 4 Completed butalbital 50 MG / hours as Caffeine 40 MG Oral needed. Tablet (headache) 19910911 anastrozole 1 MG Oral 1 mg oral orally every Completed Tablet evening 795651 atorvastatin 20 MG 20 mg oral orally every Completed Oral Tablet evening 525485 buspirone 15 mg oral orally 2 times Completed hydrochloride 15 MG per day Oral Tablet 885187 dexlansoprazole 30 MG 30 mg oral orally daily Completed Delayed Release Oral Capsule 3443 Diltiazem 120 mg oral orally every Completed evening 02628 duloxetine 120 mg oral orally every Completed morning 847617 Fenofibrate 145 MG 145 mg oral orally every Completed Oral Tablet evening 5487 Hydrochlorothiazide 12.5 mg oral orally every Completed other day 85272 levothyroxine 75 mcg oral orally every Completed morning 540504 Losartan Potassium 50 50 mg oral orally every Completed MG Oral Tablet evening 353192 meloxicam 7.5 MG Oral 7.5 mg oral orally every Completed Tablet morning 7531 Nortriptyline 150 mg oral orally every Completed evening 714011 [place]-3 Acid Ethyl 2 g oral orally 2 times Completed Esters (SENIOR CARE) 1000 MG per day Oral Capsule Medications At Time Of Discharge RxNorm Medication Dose Route Instructions Start End Status Date Date 19910911 anastrozole 1 MG Oral 1 mg oral orally daily Active Tablet 746294 atorvastatin 20 MG Oral 20 mg oral orally daily Active Tablet 418119 buspirone hydrochloride 15 mg oral orally 2 times Active 15 MG Oral Tablet per day 2418 Cholecalciferol 7000 oral orally every Active unit morning 493541 dexlansoprazole 30 MG 30 mg oral orally daily Active Delayed Release Oral Capsule 3443 Diltiazem 120 mg oral orally daily Active 30178 duloxetine 120 mg oral orally daily Active 084394 Fenofibrate 145 MG Oral 145 mg oral orally daily Active Tablet 5487 Hydrochlorothiazide 12.5 mg oral orally every Active other day 58947 levothyroxine 75 mcg oral orally daily Active 082283 Losartan Potassium 50 50 mg oral orally daily Active MG Oral Tablet 486809 meloxicam 7.5 MG Oral 7.5 mg oral orally daily Active Tablet 19791015 Nitroglycerin 0.4 MG 0.4 mg sublingual sublingually Active Sublingual Tablet every 5 minutes as needed. (until response; do not exceed 3 doses per episode) 19791111 Nortriptyline 10 MG 10 mg oral orally every Active Oral Capsule evening [place]ville-3 Fatty Acids 2000 mg oral orally 2 times Active per day Problems Code Code System Problem Name Start Date End Date Status Endocrine - Thyroid Problems U U Active Procedures Code Code System Procedure Date Colonoscopy U Results Laboratory Results Order: B-TYPE NATRIURETIC PEPTID Specimen Source: Body Site: Legend: (G,H) = High, (GG,HH,CH,#H) = Above High Threshold, ( #,L) = Low, (##,CL,#L,LL) = Below Low Threshold, (C,CC,CA,#A,A) = Abnormal LOINC Test Result Flag Range Units Date 47279-0 1BNP SerPl-mCnc 76 0-100 pg/mL 07/23/2019 16:50 Performing Lab Footnotes:[facility] - [id number] - [address] [place] [address] LATOYA Vera ROSY Order: CBC DIFF Specimen Source: Body Site: Legend: (G,H) = High, (GG, HH,CH,#H) = Above High Threshold, (#,L) = Low, (##,CL,#L,LL) = Below Low Threshold, (C,CC,CA,#A,A) = Abnormal LOINC Test Result Flag Range Units Date 6690-2 1WBC # Bld Auto 4.3 L 4.8-10.8 K/uL 07/23/2019 16:50 36169-5 1RBC # Bld 3.49 L 4.20-5.40 M/uL 07/23/2019 16:50 718-7 1Hgb Bld-mCnc 11.2 L 12.0-16.0 gm/dL 07/23/2019 16:50 4544-3 1Hct VFr Bld Auto 33.2 L 36.0-48.0 % 07/23/2019 16:50 787-2 1MCV RBC Auto 94.9 80.0-100.0 fL 07/23/2019 16:50 81805-8 1MCHC RBC-mCnc 33.8 30.0-36.5 % 07/23/2019 16:50 78757-6 1MCH RBC Qn 32.1 27.0-34.0 pg 07/23/2019 16:50 90228-8 1RDW RBC 12.5 11.0-15.0 % 07/23/2019 16:50 777-3 1Platelet # Bld Auto 192 130-450 K/uL 07/23/2019 16:50 93081-1 1PMV Bld Auto 7.3 6.0-12.0 fL 07/23/2019 16:50 751-8 1Neutrophils # Bld Auto 63 37-80 % 07/23/2019 16:50 18621-8 1Lymphocytes NFr Bld 24 10-50 % 07/23/2019 16:50 5905-5 1Monocytes NFr Bld Auto 10 0-12 % 07/23/2019 16:50 18163-2 1Eosinophil # Bld 2 <=8 % 07/23/2019 16:50 704-7 1Basophils # Bld Auto 1 <=3 % 07/23/2019 16:50 33264-4 1Neutrophils # Bld 2.7 1.8-8.6 K/uL 07/23/2019 16:50 731-0 1Lymphocytes # Bld Auto 1.0 0.5-5.0 K/uL 07/23/2019 16:50 742-7 1Monocytes # Bld Auto 0.4 0.0-1.3 K/uL 07/23/2019 16:50 35437-3 1Eosinophil # Bld 0.1 0.0-0.9 K/uL 07/23/2019 16:50 704-7 1Basophils # Bld Auto 0.0 0.0-0.3 K/ul 07/23/2019 16:50 Performing Lab Footnotes:[facility] - [id number] [place] [address] LATOYA [id number] Order: CK Specimen Source: Body Site: Legend: (G,H) = High, (GG,HH,CH,# H) = Above High Threshold, (#,L) = Low, (##,CL,#L,LL) = Below Low Threshold, (C, CC,CA,#A,A) = Abnormal LOINC Test Result Flag Range Units Date 2157-6 1CK SerPl-cCnc 57 21-215 U/L 07/23/2019 16:50 Performing Lab Footnotes:[facility] - [id number] [place] [address] LATOYA [id number] Order: COMPREHENSIVE PANEL Specimen Source: Body Site: Legend: (G,H) = High, (GG,HH,CH,#H) = Above High Threshold, (#,L) = Low, (##,CL,#L,LL) = Below Low Threshold, (C,CC,CA,#A,A) = Abnormal LOINC Test Result Flag Range Units Date 2951-2 1Sodium SerPl-sCnc 135 L 136-145 mmol/L 07/23/2019 16:50 2823-3 1Potassium SerPl-sCnc 4.1 3.5-5.2 mmol/L 07/23/2019 16:50 2075-0 1Chloride SerPl-sCnc 105 100-108 mmol/L 07/23/2019 16:50 8-9 1CO2 SerPl-sCnc 22 21-32 mmol/L 07/23/2019 16:50 2345-7 1Glucose SerPl-mCnc 89 70-100 mg/dL 07/23/2019 16:50 3094-0 1BUN SerPl-mCnc 23 H 7-21 mg/dL 07/23/2019 16:50 2160-0 1Creat SerPl-mCnc 1.5 H 0.6-1.3 mg/dL 07/23/2019 16:50 Interpretive Andreea: 1Normal Kidney Function or Mild Disease - GFR >OR= 60 Chronic Kidney Disease - GFR 15-59 Renal Failure - GFR < 15 GFR not calculated on patients under 18 years of age. Calculated (estimated) GFR is based on the MDRD Study equation, which assumes a steady state for creatinine. Estimated GFR may not be appropriate for medication dosing. 47938-8 1Ca-I SerPl-mCnc 9.0 8.5-10.8 mg/dL 07/23/2019 16:50 40175-6 1GFR/BSA.pred SerPl-ArVRat 32 07/23/2019 16:50 45454-8 1Bilirub Bld-mCnc 0.3 0.0-1.2 mg/dL 07/23/2019 16:50 2885-2 1Prot SerPl-mCnc 6.0 L 6.4-8.2 gm/dL 07/23/2019 16:50 1751-7 1Albumin SerPl-mCnc 3.7 3.2-4.6 gm/dL 07/23/2019 16:50 6768-6 1ALP SerPl-cCnc 46 40-150 U/L 07/23/2019 16:50 1742-6 1ALT SerPl-cCnc 14 0-55 U/L 07/23/2019 16:50 1920-8 1AST SerPl-cCnc 24 5-37 U/L 07/23/2019 16:50 Performing Lab Footnotes:[facility] - [id number] - [address] [place] [address] LATOYA GALLEGOS Order: PT/INR Specimen Source: Body Site: Legend: (G,H) = High, (GG,HH, CH,#H) = Above High Threshold, (#,L) = Low, (##,CL,#L,LL) = Below Low Threshold , (C,CC,CA,#A,A) = Abnormal LOINC Test Result Flag Range Units Date 5902- 1PT Time PPP 12.1 9.4-12.4 sec 07/23/2019 16:50 6301-6 1INR PPP 1.1 07/23/2019 16:50 Interpretive Andreea: 1 INR INTERPERTATION 2.0-3.0 THERAPEUTIC MONITORING 2.5-3.5 HEART VALVE REPLACEMENT Performing Lab Footnotes:[facility] - [id number] - [address] [place] [address] LATOYA GALLEGOS Order: TROPONIN I Specimen Source: Body Site: Legend: (G,H) = High, (GG ,HH,CH,#H) = Above High Threshold, (#,L) = Low, (##,CL,#L,LL) = Below Low Threshold, (C,CC,CA,#A,A) = Abnormal LOINC Test Result Flag Range Units Date 69349-3 1Troponin I SerPl-mCnc 0.02 0.00-0.04 ng/mL 07/23/2019 16:50 Interpretive Andreea: 1 TROPONIN INTERPRETATION 0.00 - 0.04 ng/ml Normal 0.05 - 0.29 ng/ml Green Zone, Uncertain for AMI Greater than 0.30 ng/ml Suggestive of AMI Performing Lab Footnotes:[facility] - [id number] - [address] [place] [address] LATOYA [id number] Radiology Results Order: CHEST PORTABLE-SINGLEExam Completion Date:07/23/2019 16: 4:31 PM CHEST X-RAY CLINICAL INFORMATION: -- Dyspnea COMPARISON: 01/06/2019 PROCEDURE: A single frontal projection of the chest was obtained. FINDINGS: Tubes and Catheters: None. Central Airways: Normal. Lungs: Normal. Pleura/Pleural space : Normal. Heart and Mediastinum: Normal. Additional Findings: No acute or aggressive osseous changes noted. Degenerative changes of both shoulder joints. IMPRESSION: No acute cardiopulmonary disease. END OF IMPRESSION I have personally reviewed the images and the Resident's/Fellow's interpretation and agree with oredited the findings. [facility] submits Radiology results to [facility] and [facility] then provides those same results to [facility]. All results are available [facility] and [facility] provider portal users. [facility] DICOM images are available to the [facility] provider portal users only. [facility] DICOM images are not available to the [facility] provider portal users. There is no current [facility] cross-IO functionality allowing images to be available through the IO to [facility] connectivity. Interpreted By: Alfredo Tyson M.D. Electronically signed By: Bandar Jacobson M.D. Read By: BANDAR JACOBSON Date: 07/24/2019 08:07 Social History Code Code System Social History Observation Description Dates Observed 183323224 SNOMED CT Current Smoking Status Never smoker UNK AdministrativeGender Sex Assigned At Unknown Vital Signs Code Code System Vitals Value Date 8310-5 LOINC Body Temperature 97.6 [degF] 07/23/2019 8865-8 LOINC Pulse Rate 85 {beats}/min 07/23/2019 9279-1 LOINC Respiratory Rate 18 /min 07/23/2019 58158-5 LOINC O2% BldC Oximetry 98 % 07/23/2019 8480-6 LOINC BP Systolic 146 mm[Hg] 07/23/2019 8462-4 LOINC BP Diastolic 70 mm[Hg] 07/23/2019 8302-2 LOINC Height 60 [in_i] 07/23/2019 55417-9 LOINC Weight 57 kg 07/23/2019 3140-1 LOINC Body surface area Derived from formula 1.53 m2 07/23/2019 68167-4 LOINC BMI (Body Mass Index) 24.6 kg/m2 07/23/2019 Goals Section No data in the system Health Concerns No data in the systemEncounter Diagnosis Date Code Code System Diagnosis Status R06.09 ICD10 OTHER FORMS OF DYSPNEA Active Advance Directives DO NOT RESUSCITATE Directive Type Effective Date Foundation Relations Manager Notes Supporting Document Name Address Phone No Directive 07/23/2019 Not Specified Not Specified Not Specified pt states No Type specified 1:40:00 PM does not want to be on life support DO NOT INTUBATE Directive Type Effective Date Foundation Relations Manager Notes Supporting Document Name Address Phone No Directive Type 01/06/2019 5:38:00 Not Specified Not Specified Not Specified None Yes specified PM *RHIO - CONSENT IS YES Directive Type Effective Date Foundation Relations Manager Notes Supporting Document Name Address Phone No Directive Type 06/18/2015 2:34:39 Not Specified Not Specified Not Specified None No specified PM [facility] Directive Type Effective Date Foundation Relations Manager Notes Supporting Document Name Address Phone No Directive 01/06/2019 Not Specified Not Specified Not Specified Zelda Morel No Type specified 1:56:49 PM [phone] Encounters Encounter Diagnosis Location Date OTHER FORMS OF DYSPNEA [facility] 07/23/2019 Family History Patient has no knowledge of family history Functional Status Code Functional Condition Code System Date Status Independent adls SNOMED CT 07/23/2019 Active Appears well nourished/hydrated SNOMED CT 07/23/2019 Active Immunizations Vaccine Code Code System Vaccine Name Date Status NOT UTD Completed Medical Equipment No data in the system Mental Status Code Cognitive Condition Code System Date Status Oriented x [address] 07/23/2019 Active No acute distress SNOMED CT 07/23/[address] 07/23/[address] 07/23/2019 Active Assessment and Plan Assessments No data in the systemPlan Of Treatment No data in the systemPending Tests No data in the system Hospital Discharge Instructions No data in the system Reason for Visit Reason for Visit SOB
[2019-09-10] MEDS ORDERED: NS 0.9% 1000 ML** 1,000 ML IV ONE (11:41)
--- NOTE | 2019-09-10 12:09 | ED ---
Complex/Multi-Sys Presentation - HPI Summary HPI Summary: Patient is a 78 y/o F presenting to the ED for a chief complaint of nausea and vomiting. Patients reports the patient has nausea and vomiting. He states the patient is dehydrated. Patient also complains of sleep disturbance and chills. She denies diarrhea. Patient believes she may have a bladder infection. Patient notes taking magnesium. On 08/28/19, patient was seen by a back pad inspector for shortness of breath. PMHx is significant for hypertension. - History Of Current Complaint Chief Complaint: EDGeneral Time Seen by Provider: 09/10/19 11:41 Hx Obtained From: Patient, Family/Subsea Engineer - Onset/Duration: Sudden Onset, Still Present Timing: Constant Severity Currently: Moderate Severity Initially: Moderate Associated Signs And Symptoms: Positive: SOB, Nausea, Vomiting. Negative: Diarrhea - Allergies/Home Medications Allergies/Adverse Reactions: Allergies Allergy/AdvReac Type Severity Reaction Status Date / Time codeine Allergy See Comment Verified 09/10/19 14:54 oxycodone [From Percocet] Allergy Hallucinati Verified 09/10/19 14:54 ons Sulfa (Sulfonamide Allergy Nausea Verified 09/10/19 14:54 Antibiotics) tramadol Allergy See Comment Verified 09/10/19 14:54 environmental Allergy See Comment Uncoded 09/10/19 11:32 Home Medications: Home Medications Anastrozole (NF) [Arimidex (NF)] 1 mg PO DAILY 09/10/19 [History Confirmed 09/10] Atorvastatin* [Lipitor*] 20 mg PO DAILY 09/10/19 [History Confirmed 09/10/19] Butalb/Acetamin/Caff TAB* [Fioricet TAB*] 1 tab PO Q4H PRN 09/10/19 [History Confirmed 09/10/19] DULoxetine DR CAP* [Cymbalta CAP*] 120 mg PO DAILY 09/10/19 [History Confirmed 09/10/19] Fenofibrate(NF) [Tricor(NF)] 145 mg PO BEDTIME 09/10/19 [History Confirmed 09/10] Folic Acid TAB* [Folvite TAB*] 400 mcg PO BEDTIME 09/10/19 [History Confirmed ] Hydrochlorothiazide TAB* [Hydrodiuril TAB*] 12.5 mg PO EVERY OTHER DAY 09/10/19 [History Confirmed 09/10/19] Losartan TAB* [Cozaar TAB*] 50 mg PO DAILY 09/10/19 [History Confirmed 09/10/19] Magnesium Oxide TAB* [MagOx 400 TAB*] 400 mg PO DAILY 09/10/19 [History Confirmed 09/10/19] Meloxicam(NF) [Mobic(NF)] 7.5 mg PO DAILY 09/10/19 [History Confirmed 09/10/19] Mirabegron (NF) [Myrbetriq (NF)] 25 mg PO DAILY 09/10/19 [History Confirmed 10/25] Nortriptyline CAP* [Pamelor CAP*] 150 mg PO BEDTIME 09/10/19 [History Confirmed 09/10/19] Bois D Arc-3 Acid Ethyl Esters 2 gm PO BID 09/10/19 [History Confirmed 09/10/19] Simethicone [Gas Relief] 125 mg PO TID 09/10/19 [History Confirmed 09/10/19] busPIRone TAB* [Buspar TAB *] 15 mg PO BID 09/10/19 [History Confirmed 09/10/19] dilTIAZem HCl [Cartia Xt] 120 mg PO DAILY 09/10/19 [History Confirmed 09/10/19] PMH/Surg Hx/FS Hx/Imm Hx Previously Healthy: Yes Endocrine/Hematology History: Reports: Hx Thyroid Disease, Hx Anemia - HISTORY OF ANEMIA Cardiovascular History: Reports: Hx Hypertension, Hx Rheumatic Fever - 1948, Other Cardiovascular Problems/Disorders - HIGH CHOLESTEROL AND AORTIC ANEURYSM Respiratory History: Reports: Hx Sleep Apnea GI History: Reports: Hx Gastroesophageal Reflux Disease, Hx Hiatal Hernia Musculoskeletal History: Reports: Hx Arthritis - HANDS, Hx Tendonitis, Other Musculoskeletal History - SPINAL STENOSIS AND SCLOSIS Sensory History: Reports: Hx Cataracts, Hx Contacts or Glasses - READING Denies: Hx Legally Blind, Hx Deafness, Hx Hearing Aid Opthamlomology History: Reports: Hx Cataracts, Hx Contacts or Glasses - READING Denies: Hx Legally Blind EENT History: Denies: Hx Deafness Neurological History: Reports: Hx Migraine - on prn medication, Other Neuro Impairments/Disorders - FIBROMYLAGIA Psychiatric History: Reports: Hx Depression Denies: Hx Anxiety, Hx Attention Deficit Hyperactivity Disorder, Hx Eating Disorder, Hx Panic Disorder, Hx Post Traumatic Stress Disorder, Hx Inpatient Treatment, Hx Community Mental Health Tx, Hx Schizophrenia, Hx Bipolar Disorder , Hx Suicide Attempt, Hx of Violent Episodes Against Others, Hx Substance Abuse , Other Psychiatric Issues/Disorders - Surgical History Surgical History: Yes Surgery Procedure, Year, and Place: TONSILLECTOMY 1948. APPENDECTOMY 2007. RIGHT KNEE 2010. RTK 2010. RIGHT KNEE QUAD TENDON REPAIR. CATARACT 5 YEARS AGO [facility]. BTL 1975 Hx Anesthesia Reactions: Yes - VOMITING Infectious Disease History: No Infectious Disease History: Reports: Hx Shingles Denies: Hx Clostridium Difficile, Hx Hepatitis, Hx Human Immunodeficiency Virus (HIV), Hx Tuberculosis, Traveled Outside the [place] in Last 30 Days - Family History Known Family History: Positive: Cardiac Disease, Diabetes, Other - [place]. - Social History Occupation: Retired Lives: With Family Alcohol Use: Rare Hx Substance Use: No Substance Use Type: Reports: None Hx Tobacco Use: No Smoking Status (MU): Never Smoked Tobacco Review of Systems Positive: Chills Positive: Vomiting, Nausea. Negative: Diarrhea Psychological: Other - Positive sleep disturbance All Other Systems Reviewed And Are Negative: Yes Physical Exam - Summary Physical Exam Summary: VITAL SIGNS: Reviewed. GENERAL: Patient is a well-developed and nourished Female who is lying comfortable in the stretcher. Patient is not in any acute respiratory distress. HEAD AND FACE: No signs of trauma. No ecchymosis, hematomas or skull depressions. No sinus tenderness. EYES: PERRLA, EOMI x 2, No injected conjunctiva, no nystagmus. EARS: Hearing grossly intact. Ear canals and tympanic membranes are within normal limits. MOUTH: Dry oral mucosa, otherwise, oropharynx within normal limits. NECK: Supple, trachea is midline, no adenopathy, no JVD, no carotid bruit, no c- spine tenderness, neck with full ROM. CHEST: Symmetric, no tenderness at palpation. LUNGS: Clear to auscultation bilaterally. No wheezing or crackles. CVS: Regular rate and rhythm, S1 and S2 present, no murmurs or gallops appreciated. ABDOMEN: Soft, non-tender. No signs of distention. No rebound, no guarding, and no masses palpated. Bowel sounds are normal. EXTREMITIES: FROM in all major joints, no edema, no cyanosis or clubbing. NEURO: Alert and oriented x 3. No acute neurological deficits. Speech is normal and follows commands. SKIN: Dry and warm. Triage Information Reviewed: Yes Vital Signs On Initial Exam: Initial Vitals Temp Pulse Resp BP Pulse Ox 98.7 F 85 16 190/93 99 09/10/19 11:30 09/10/19 11:30 09/10/19 11:30 09/10/19 11:30 09/10/19 11:30 Vital Signs Reviewed: Yes Procedures - Sedation Patient Received Moderate/Deep Sedation with Procedure: No Diagnostics - Vital Signs Vital Signs Temp Pulse Resp BP Pulse Ox 09/10/19 11:30 98.7 F 85 16 190/93 99 - Laboratory Result Diagrams: 09/10/19 12:24 09/10/19 12:24 Lab Statement: Any lab studies that have been ordered have been reviewed, and results considered in the medical decision making process. - Radiology Abdomen X-ray Radiology Interpretation Completed By: Radiologist Summary of Radiographic Findings: Abdomen X-ray IMPRESSION: THERE ARE FEW SCATTERED AIR-FLUID LEVELS WITHIN THE SMALL BOWEL AND COLON WHICH ARE NONDISTENDED. THIS IS A NONSPECIFIC GAS PATTERN ALTHOUGH BE SUGGESTIVE OF GASTROENTERITIS OR LESS LIKELY A LOW-GRADE PARTIAL OBSTRUCTION. Reviewed by Dr. Jennings. Chest X-ray Radiology Interpretation Completed By: Radiologist Summary of Radiographic Findings: Chest X-ray IMPRESSION: NO EVIDENCE FOR ACTIVE CARDIOPULMONARY DISEASE. Reviewed by Dr. Jennings. Complex Multi-Symp Course/Dx Assessment/Plan: Patient is a 78 y/o F presenting to the ED for a chief complaint of nausea and vomiting. Patients reports the patient has nausea and vomiting. He states the patient is dehydrated. Patients also complain of sleep disturbance and chills. She denies diarrhea. Patient believes she may have a bladder infection. Patient notes taking magnesium. On 08/28/19, a patient was seen by a back pad inspector for shortness of breath. PMHx is significant for hypertension. In the ED course the patient was placed on a optical lathe operator, IV access was obtained, and IV fluids started. Blood test is w /o any significant abnormality except for slight anemia with a hemoglobin of 11.4, hematocrit 34, creatinine 1.14, troponin 0.03, BMP 137 and total protein was 6.1. Chest x-ray impression: No evidence for active cardiopulmonary disease. Abdominal x-ray impression: There are a few scattered air-fluid levels within the small bowel and colon which are nondistended. This is a nonspecific gas pattern although be suggestive of gastroenteritis or less likely a low-grade partial obstruction. In the ED course the patient was given Rocephin for the UTI and aspirin for the increased troponin. I discuss my physical exam findings and test results with Dr. Mcgovern from the hospitalist services and she agrees to admit the patient to her services. The patient is hemodynamically stable, and alert and oriented x 3. - Diagnoses Provider Diagnoses: UTI (urinary tract infection), Elevated troponin - Physician Notifications Discussed Care Of Patient With: Maria G Mcgovern - At 15:35, Dr. Maria G Mcgovern reviewed the patients case and agrees to admit the patient to [facility] [place] with a diagnosis of UTI and elevated troponin. Time Discussed With Above Provider: 15:35 Instructed by Provider To: Admit As Inpatient Discharge ED - Sign-Out/Discharge Documenting (check all that apply): Patient Departure - Admit - Discharge Plan Condition: Stable Disposition: ADMITTED TO [facility] - Billing Disposition and Condition Condition: STABLE Disposition: Admitted to [facility] - Attestation Statements Document Initiated by Scribe: Yes Documenting Scribe: Radha Tracy Provider For Whom Scribe is Documenting (Include Credential): Arnold Jennings MD Scribe Attestation: I, Radha Tracy, scribed for Arnold Jennings MD on 09/10/19 at 8123. Scribe Documentation Reviewed: Yes Provider Attestation: The documentation as recorded by the Radha mcneill accurately reflects the service I personally performed and the decisions made by me, Arnold Jennings MD Status of Scribe Document: Viewed
[2019-09-10 12:33] LABS: ABS Lymphocytes 0.9 10^3/ul (1.0-4.8); ABS Monocytes 0.4 10^3/ul (0-0.8); ABS Neutrophils 2.3 10^3/ul (1.5-7.7); Eosinophil % 0.8 %; Hematocrit 34 % (35-47); Hemoglobin 11.4 g/dL (12.0-16.0); Lymphocyte % 25.2 %; Mean Corpuscular HGB Conc 33 g/dL (31-36); Mean Corpuscular Hemoglobin 31 pg (27-31); Mean Corpuscular Volume 93 fL (80-97); Mean Platelet Volume 7.7 fL (7.4-10.4); Platelet Count 228 10^3/uL (150-450); Red Cell Distribution Width 14 % (10-15); White Blood Count 3.7 10^3/uL (3.5-10.8)
[2019-09-10] MEDS ORDERED: Ondansetron INJ* 2 MG/ML VIAL IV ONE (12:55)
[2019-09-10 12:58] LABS: ALT 10 U/L (7-52); AST 22 U/L (13-39); Albumin 3.8 g/dL (3.2-5.2); Albumin/Globulin Ratio 1.7 (1-3); Alkaline Phosphatase 58 U/L (34-104); Anion Gap 6 mmol/L (2-11); Blood Urea Nitrogen 16 mg/dL (6-24); C Reactive Protein 4.58 mg/L (<8.01); CO2 Carbon Dioxide 27 mmol/L (22-32); Calcium 9.4 mg/dL (8.6-10.3); Chloride 104 mmol/L (101-111); Creatine Kinase 43 U/L (10-223); EGFR African American 55.6 (>60); Globulin 2.3 g/dL (2-4); Glucose 94 mg/dL (70-100); Magnesium 1.9 mg/dL (1.9-2.7); Potassium 4.6 mmol/L (3.5-5.0); Sodium 137 mmol/L (135-145); Total Protein 6.1 g/dL (6.4-8.9); Troponin I 0.03 ng/mL (<0.03)
[2019-09-10 14:17] LABS: Urine Appearance Cloudy; Urine Bilirubin Negative (Negative); Urine Blood Negative (Negative); Urine Color Yellow; Urine Glucose Negative (Negative); Urine Ketones Negative (Negative); Urine Nitrite Positive (Negative); Urine Protein Negative (Negative); Urine Specific Gravity 1.008 (1.010-1.030); Urine Urobilinogen Negative (Negative)
[2019-09-10 14:21] LABS: Urine Bacteria Absent (Absent); Urine Red Blood Cell Trace(0-2/hpf) (Absent); Urine Squamous Epithelial Cell Present (Absent); Urine White Blood Cell 3+(>20/hpf) (Absent)
[2019-09-10] MEDS ORDERED: cefTRIAXone(*) 1 GM in NS 0.9% 50 ML* 50 ML IVPB ONE (14:37)
[2019-09-10 14:51] LABS: Influenza A Molecular Negative (Negative); Influenza B Molecular Negative (Negative)
[2019-09-10] MEDS ORDERED: Acetaminophen TAB* 325 MG PO PRN (15:55)
[2019-09-10] MEDS ORDERED: Ondansetron INJ* 2 MG/ML VIAL IV PRN (15:55)
[2019-09-10 16:21] LABS: Troponin I 0.03 ng/mL (<0.03)
[2019-09-10 16:35] LABS: Cholesterol 151 mg/dL; HDL Cholesterol 55.4 mg/dL; LDL Cholesterol 69 mg/dL; Triglycerides 131 mg/dL
[2019-09-10] MEDS ORDERED: Meropenem 1 GM PREMIX(*) 1 GM/50 ML BAG IV SCH (17:00)
[2019-09-10] MEDS ORDERED: Piperacillin/Tazobac ADVAN(*) 3.375 GM in NS 0.9% 100 ML* 100 ML IVPB ONE (17:26)
[2019-09-10] MEDS ORDERED: Zosyn per Pharmacy* NOTE FOLLOW UP SCH (18:00)
[2019-09-10] MEDS: NS 0.9% 1000 ML** 1,000 ML IV SCH (18:01)
[2019-09-10] MEDS: Diltiazem CD CAP* 120 MG PO SCH (18:01)
[2019-09-10 19:03] LABS: TSH (Thyroid Stimulating Horm) 1.64 mcIU/mL (0.34-5.60)
[2019-09-10 19:29] LABS: Troponin I 0.03 ng/mL (<0.03)
--- NOTE | 2019-09-10 19:47 | HP ---
HISTORY AND PHYSICAL: ADDENDUM: The case was reviewed and discussed with Anisa Noble NP. Laboratory and imaging tests were reviewed. In summary, Ms. Johnson is a 78-year-old female with a past medical history of hypothyroidism, anemia, hypertension, hyperlipidemia, obstructive sleep apnea, recurrent UTIs, who is being worked up as an outpatient by Pulmonary for shortness of breath and desaturation, who presented to the emergency room with complaints of nausea and vomiting associated with dysuria. Her workup in the emergency room included abnormal urinalysis with positive nitrites, 3+ LE, and 3+ wbc's. Her last urine culture in 2017 grew ESBL E. coli , so for now she will be treated with Zosyn until we have a current urine culture result. The patient was also noted to have minimal troponin elevation at 0.03 with no complaints of chest pain and no acute ischemic changes on her EKG (please note that her EKG is not yet loaded in [employer], but I saw the printed version in the emergency room). This may be secondary to increased demand in the setting of UTI. The patient has no complaints of chest pain, only her chronic shortness of breath is being worked up as an outpatient. She saw Dr. Chase and on the 6-minute walking test, her oxygen saturation dropped to 85% and the recommendation is for her to wear oxygen with exertion. He ordered an outpatient workup including V/Q scan, lower extremity Doppler and methacholine challenge that the patient has scheduled as an outpatient. If her troponins continue to trend up, she may need further cardiac workup, but at this time, I think a transthoracic echo should suffice. She also has complaints of black stools and her hemoglobin has dropped from 14.7 three years ago to 11.4 now. We will check anemia workup including stool for occult blood as the patient is chronically on NSAIDs (meloxicam). Depending on those results, she may need GI evaluation as an outpatient. I reviewed the assessment and plan with Anisa Noble NP, and I am in agreement with the current management. [id number]/[facility] #: [id number] MTDD
[2019-09-10] MEDS: busPIRone TAB* 15 MG PO SCH (20:14)
[2019-09-10] MEDS: CMCS: OMEGA-3 FATTY ACIDS (NF) 1,000 MG CAP PO SCH (20:16)
[2019-09-10] MEDS: Simethicone TAB* 80 MG TAB.CHEW PO SCH (20:18)
[2019-09-10] MEDS: Butalb/Acetamin/Caff TAB* 1 TAB PO PRN (20:19)
[2019-09-10 20:46] LABS: INR 1.09 (0.82-1.09)
[2019-09-10] MEDS ORDERED: Nortriptyline CAP* 25 MG PO SCH (21:00)
[2019-09-10] MEDS ORDERED: Folic Acid TAB* 1 MG PO SCH (21:00)
[2019-09-10] MEDS: Heparin VIAL(*) 5000 UNITS/ML VIAL (FIVE THOUSAND) SUBCUT SCH (22:15)
[2019-09-10] MEDS: ZOSYN 3.375 GM Q8H per EXTENDED INFUSION IVPB SCH ×2 (22:16)
--- NOTE | 2019-09-10 23:07 | HP ---
ATTENDING ADDENDUM NOW INCLUDED ON THIS REPORT ADMISSION HISTORY AND PHYSICAL: DATE OF ADMISSION: 09/10/19 PRIMARY CARE PHYSICIAN: Dr. Celia Moraes ATTENDING PHYSICIAN: Dr. Louie.* (DICTATED BY JERAMY SANCHEZ NP) CHIEF COMPLAINT: Nausea, vomiting, "just felt like I had to collapse." HISTORY OF PRESENT ILLNESS: Ms. Johnson is a pleasant 78-year-old female who presented today to the ED with a chief complaint of nausea and vomiting. She states that she has been feeling "dehydrated" for about a month or so now. She has been nauseous on and off for longer than a month. She started throwing up last night, states about 3 times. This vomiting started after she drank Gatorade and water, although she had not been feeling well all day yesterday and had yogurt and muffin to eat. She has not been hungry, she has been feeling nauseous. She did have a migraine this morning, which improved after taking Fioricet. She states that this episode feels similar to prior episodes of having a UTI, but she is feeling worse than usual. She does complain of burning with urination and frequency in urination, denies any blood in her urine. States that she gets UTIs frequently and she is often treated by her primary care provider with Cipro. She has had what she feels like is increasing shortness of breath over the past at least month or so. Her confirms this. She did have an appointment with her lens grinder on 08/28/19 as an outpatient but is yet to fulfill the tests that have been ordered for her. She does complain of feeling diaphoretic and having chills for the last couple of days and as mentioned the increasing shortness of breath. She does complain of having a 1- to 2-minute episode of left-sided chest pain after walking to the bathroom this morning, states that it went away on its own, she is unsure if anything made it better or worse. Sounds as if it went away with rest. Her reports that she complained of chest pain a couple of days ago, but the patient does not seem to remember complaining of any chest pain. She states that she has been having very dark stools, she is unsure for how long this has been happening. She says that her stool is often soft if not liquid and that is normal for her and especially since she started taking a magnesium supplement. She states that she does get lightheaded at times along with the shortness of breath and that she may get short of breath just from walking through her home. She denies any recent unexplained weight loss, visual changes, palpitations, swelling, wheezing. States that she has had a cough for at least a couple of months, although she feels as if she has postnasal drip, which creates her cough, she denies coughing anything up. Denies constipation, abdominal pain, blood in stool. Denies any current unusual muscle aches or joint stiffness, although she did complain of some back pain yesterday, for which her rubbed Voltaren cream on, which seemed to help. Denies any rashes, lesions, or wounds on her body. Denies any unusual numbness or tingling, although she states she has had a long-term decrease of sensation to bilateral lower extremities. Denies any mental status changes. An order has been entered to retrieve old records from Internal Medicine, Cardiology, and Pulmonology. While in the emergency department, she was noted to have a troponin level of 0.03. Hospital Medicine was asked to evaluate the patient for admission in regards to treating the UTI and ruling out any cardiac complications. The patient states that a surrogate decision maker for her would be her , Jan Johnson. PAST MEDICAL HISTORY: Hypertension; hypothyroidism; anemia; rheumatic fever; vitamin D deficiency; thoracic aortic aneurysm; GERD; sleep apnea; chronic kidney disease, stage 2; hyperlipidemia; osteoarthritis; tendinitis; spinal stenosis; scoliosis; cataracts; migraines; fibromyalgia; depression; anxiety; history of uterine cancer. PAST SURGICAL HISTORY: Tonsillectomy, appendectomy, cataract removal, gallbladder removal, right total knee arthroplasty, right breast tumor removal. HOME MEDICATIONS: 1. Folic acid 400 mcg p.o. at bedtime. 2. Magnesium oxide tab 400 mg p.o. daily. 3. Cholecalciferol/vitamin D3 5000 units p.o. daily. 4. Mirabegron 25 mg p.o. daily. 5. Hydrochlorothiazide 12.5 mg p.o. every other day. 6. Losartan tab (Cozaar) 50 mg p.o. daily. 7. Duloxetine DR cap 120 mg p.o. daily. 8. TriCor 145 mg p.o. at bedtime. 9. Atorvastatin 20 mg p.o. daily. 10. Simethicone 125 mg p.o. t.i.d. 11. Buspirone 15 mg p.o. b.i.d. 12. Meloxicam 7.5 mg p.o. daily. 13. Levothyroxine 75 mcg p.o. daily. 14. Fioricet 1 tab p.o. q.4 hours p.r.n. 15. Nortriptyline 150 mg p.o. at bedtime. 16. Diltiazem hydrochloride (Cartia XT) 120 mg p.o. daily. 17. Anastrozole 1 mg p.o. daily. 18. [place]-3 acid ethyl esters 2 g p.o. b.i.d. ALLERGIES: CODEINE, OXYCODONE, SULFA, TRAMADOL, and environmental allergies. FAMILY HISTORY: Father with a history of OR. Mother with a history of CVA and sudden . Brother with a history of heart disease. Sister with a history of uterine cancer. SOCIAL HISTORY: Ms. Johnson lives at home with her . They have been for over 50 years. She has 1 daughter and 2 stepsons. She has never smoked tobacco. Occasional alcohol use approximately 3 times per year. Denies any illicit drug use. REVIEW OF SYSTEMS: A 10-point review of systems was completed. Please see HPI for all pertinent positives and negatives. PHYSICAL EXAMINATION CONSTITUTIONAL: The patient is sitting up in bed, appears to be in no acute distress. VITAL SIGNS: Temp 98.7, heart rate 87, respiratory rate 16, O2 sat 99% on 2 L, blood pressure 178/102. HEENT: Normocephalic. PERRLA. No scleral icterus. Mucous membranes dry. RESPIRATORY: Lung sounds clear throughout bilaterally. Normal respiratory effort. Unlabored. CARDIOVASCULAR: Heart rate regular. S1, S2 present. No murmurs, rubs, or gallops noted. No JVD. GI: Bowel sounds x4. Soft, nontender to deep palpation. : No CVA tenderness. EXTREMITIES: Pedal pulses present 1+ bilaterally. No edema. MUSCULOSKELETAL: Range of motion and strength within normal limits to all extremities. NEURO: Alert and oriented x3. States decreased sensation to bilateral feet but is able to sense light touch. PSYCH: Responds appropriately. Normal affect. SKIN: Warm, dry, and intact. DIAGNOSTIC STUDIES AND LAB DATA: Chest x-ray shows no evidence of active cardiopulmonary disease. Abdominal x-ray, impression: There are a few scattered air fluid levels within the small bowel and colon, which are nondistended. This is a nonspecific gas pattern, although may be suggestive of gastroenteritis or less likely a low- grade partial obstruction. WBC 3.7, RBC 3.70, hemoglobin 11.4, hematocrit 34, MCV 93, MCH 31, MCHC 33, RDW 14, platelet count 228, MPV 7.7. Sodium 137, potassium 4.6, chloride 104, carbon dioxide 27, anion gap 6, BUN 16, creatinine 1.14, estimated GFR 46, BUN/ creatinine ratio 14, glucose 94, lactic acid 1.3, calcium 9.4, magnesium 1.9. Total bili 0.4, AST 22, ALT 10, alk phosphatase 58. Total creatine kinase 43. Troponin 0.03. A repeat troponin at 1551 was also 0.03. CRP 4.58. BNP 137. Total protein 6.1, albumin 3.8. Triglycerides 131, total cholesterol 151, LDL 69, HDL 55.4, lipase 28. UA showed a specific gravity of 1.008, positive for nitrates, leukocyte esterase 3+, wbc's 3+, rbc's trace, squamous epithelial cells present. Rapid influenza A and B were negative. ASSESSMENT AND PLAN: Ms. Johnson is a 78-year-old female with past medical history significant for frequent urinary tract infections, oxygen use at home and unexplained SOB, hypertension, thoracic aortic aneurysm, hypothyroidism, hyperlipidemia, fibromyalgia, vitamin D deficiency, and chronic kidney disease. She presented to the ED today with chief complaint of nausea and vomiting and a general feeling of being unwell. She has many nonspecific complaints, although she does have a history of shortness of breath of unknown etiology with oxygen use at home. She did have a short episode of chest pain earlier today and along with the elevated troponin, she will be admitted to the telemetry floor, where hospitalists will follow her during this admission. 1. Urinary tract infection. UA reveals signs of urinary tract infection. The patient reports frequent urinary tract infections that she if often placed on Cipro for. In 2017, she was noted to be positive for ESBL in her urine; therefore, we will start her on Zosyn IV while we await the results of the urine culture. 2. Shortness of breath. The patient states that she has had shortness of breath for quite some time and that this has been getting progressively worse over the last month or so. She did have an appointment with her lens grinder on 08/28/19. We will continue with oxygen therapy as needed and obtain records from lens grinder. D-Dimer ordered as thromboembolic disease was listed in the pulmonologists differentials. Otherwise she will continue outpatient follow-up, VQ scan of BLE and overnight oximetry ordered per pulm records. 3. Elevated troponin. Last 2 troponins were both 0.03. EKG did not show any ischemic changes. If a third troponin comes back at 0.03 or less, we will discontinue troponins, otherwise we will continue serial troponins for an elevation. The patient has been placed on telemetry monitoring. Transthoracic echocardiogram ordered. 4. Anemia. H and H 11.4 and 34. The patient did state that she has been having very dark stools, she was unable to report how long this has been happening. She did have iron deficiency noted on a document from the of last month; however, it is reasonable to get a stool sample for occult blood. Iron studies, B12, folate ordered. CBC ordered for tomorrow. 5. Hypertension. The patient has a history of hypertension. She has not received any of her cardiac or antihypertensive medications today per her own report, though we will restart Cartia this evening; however, due to her appearance of being dehydrated, we will hold diuretics. We will continue to trend blood pressures. 6. Personal history of primary malignant neoplasm of breast. We will continue anastrozole. 7. FEN. IV fluids at 75 mL per hour as the patient has not been very hungry and she appears dehydrated, heart-healthy diet ordered. 8. DVT prophylaxis. At this time, SCDs are ordered for the patient until stool occult blood result is obtained. 9. Code status is full code. TIME SPENT: Time spent on this admission was approximately 75 minutes with half of that being [id number] with the patient. This case has been reviewed with Dr. Louie and she agrees with the plan. JERAMY SANCHEZ NP ADDENDUM: The case was reviewed and discussed with Anisa Sanchez NP. Laboratory and imaging tests were reviewed. In summary, Ms. Johnson is a 78-year-old female with a past medical history of hypothyroidism, anemia, hypertension, hyperlipidemia, obstructive sleep apnea, recurrent UTIs, who is being worked up as an outpatient by Pulmonary for shortness of breath and desaturation, who presented to the emergency room with complaints of nausea and vomiting associated with dysuria. Her workup in the emergency room included abnormal urinalysis with positive nitrites, 3+ LE, and 3+ wbc's. Her last urine culture in 2017 grew ESBL E. coli , so for now she will be treated with Zosyn until we have a current urine culture result. The patient was also noted to have minimal troponin elevation at 0.03 with no complaints of chest pain and no acute ischemic changes on her EKG (please note that her EKG is not yet loaded in [employer], but I saw the printed version in the emergency room). This may be secondary to increased demand in the setting of UTI. The patient has no complaints of chest pain, only her chronic shortness of breath is being worked up as an outpatient. She saw Dr. Chase and on the 6-minute walking test, her oxygen saturation dropped to 85% and the recommendation is for her to wear oxygen with exertion. He ordered an outpatient workup including V/Q scan, lower extremity Doppler and methacholine challenge that the patient has scheduled as an outpatient. If her troponins continue to trend up, she may need further cardiac workup, but at this time, I think a transthoracic echo should suffice. She also has complaints of black stools and her hemoglobin has dropped from 14.7 three years ago to 11.4 now. We will check anemia workup including stool for occult blood as the patient is chronically on NSAIDs (meloxicam). Depending on those results, she may need GI evaluation as an outpatient. I reviewed the assessment and plan with Anisa Sanchez NP, and I am in agreement with the current management. BAUTISTA Louie MD [id number]/CPS #: [id number]/CPS #: [id number] PENELOPE
[2019-09-11] MEDS: Butalb/Acetamin/Caff TAB* 1 TAB PO PRN ×2 (03:20→11:27)
[2019-09-11] MEDS: ZOSYN 3.375 GM Q8H per EXTENDED INFUSION IVPB SCH ×4 (05:39→14:10)
[2019-09-11] MEDS: Heparin VIAL(*) 5000 UNITS/ML VIAL (FIVE THOUSAND) SUBCUT SCH ×2 (05:41→14:10)
[2019-09-11] MEDS ORDERED: Levothyroxine TAB* 75 MCG TAB PO SCH (06:00)
[2019-09-11 06:03] LABS: ABS Eosinophils 0.1 10^3/ul (0-0.6); ABS Monocytes 0.3 10^3/ul (0-0.8); ABS Neutrophils 1.8 10^3/ul (1.5-7.7); Eosinophil % 1.7 %; Hematocrit 31 % (35-47); Hemoglobin 10.7 g/dL (12.0-16.0); Mean Corpuscular HGB Conc 34 g/dL (31-36); Mean Corpuscular Hemoglobin 32 pg (27-31); Mean Corpuscular Volume 93 fL (80-97); Mean Platelet Volume 7.8 fL (7.4-10.4); Nucleated Red Blood Cells % 0.1; Platelet Count 187 10^3/uL (150-450); Red Blood Count 3.35 10^6 /uL (3.70-4.87); Red Cell Distribution Width 14 % (10-15); White Blood Count 3.3 10^3/uL (3.5-10.8)
[2019-09-11 06:20] LABS: Anion Gap 5 mmol/L (2-11); BUN/Creatinine Ratio 14.2 (8-20); Blood Urea Nitrogen 17 mg/dL (6-24); CO2 Carbon Dioxide 25 mmol/L (22-32); Calcium 8.9 mg/dL (8.6-10.3); Chloride 107 mmol/L (101-111); EGFR African American 52.4 (>60); EGFR Non-African American 43.3 (>60); Glucose 88 mg/dL (70-100); Potassium 4.6 mmol/L (3.5-5.0); Sodium 137 mmol/L (135-145)
[2019-09-11 06:25] LABS: % Iron Saturation 25 % (15-55); Iron 90 ug/dL (50-212); Total Iron Binding Capacity 367 mcg/dL (250-450); Transferrin 262 mg/dL (203-362)
[2019-09-11 06:47] LABS: Ferritin 18.2 ng/mL (11-307)
[2019-09-11 06:52] LABS: Folate > 20.00 ng/mL (>3.99)
[2019-09-11] MEDS: NS 0.9% 1000 ML** 1,000 ML IV SCH (07:15)
[2019-09-11] MEDS ORDERED: NFT: Mirabegron (NF) 25 MG TAB PO SCH (09:00)
[2019-09-11] MEDS ORDERED: DULoxetine DR CAP* 60 MG CAP.DR PO SCH (09:00)
[2019-09-11] MEDS ORDERED: CMCS: Meloxicam(NF) 7.5 MG TAB PO SCH (09:00)
[2019-09-11] MEDS ORDERED: Atorvastatin* 20 MG TAB PO SCH (09:00)
[2019-09-11] MEDS ORDERED: Magnesium Oxide TAB* 400 MG PO SCH (09:00)
[2019-09-11] MEDS ORDERED: CMCS: Anastrozole (NF) 1 MG TAB PO SCH (09:00)
[2019-09-11] MEDS ORDERED: Cholecalciferol TAB* 1000 UNITS PO SCH (09:00)
[2019-09-11] MEDS: busPIRone TAB* 15 MG PO SCH (09:11)
[2019-09-11] MEDS: Diltiazem CD CAP* 120 MG PO SCH (09:11)
[2019-09-11] MEDS: Simethicone TAB* 80 MG TAB.CHEW PO SCH ×2 (09:11→14:10)
[2019-09-11] MEDS: CMCS: OMEGA-3 FATTY ACIDS (NF) 1,000 MG CAP PO SCH (09:12)
--- NOTE | 2019-09-11 11:24 | ECHO ---
*[facility]* [place] [address] Fax #: [phone] Transthoracic Echocardiogram Patient: Dalia Johnson : 1940 Study Date: 09/11/2019 Age: 78 Gender: F HR: 77 bpm Height: 60 in /152.4 cm BSA: 1.54 m^2 Weight: 126.7 lb /57.6 kg BMI: 24.8 kg/m^2 *Processing Specialist: * Essence Monzon [facility] *Referring Physician: * Yahaira Noble *Reading Physician: * Herberth Mathis MD Indications: SOB. History: Functional status: Following treatment plan for sleep apnea. Risk factors: Hypertension. Dyslipidemia. Rheumatic fever as a child. Anemia. Ascending Aortic aneurysm Conclusions Summary: - Left ventricle: Systolic function is normal. The estimated ejection fraction is 55-60%. Wall motion is normal; there are no regional wall motion abnormalities. - Right ventricle: Systolic function is normal. - Mitral valve: There is trace regurgitation. - Tricuspid valve: There is trace regurgitation. - Pericardium, extracardiac: There is no significant pericardial effusion. - Pulmonary arteries: Systolic pressure can not be accurately estimated. - Study data: No prior study is available for comparison. Study data: Transthoracic echocardiogram. Procedure: Transthoracic echocardiography was performed. Image quality was fair. Complete 2D, spectral Doppler, and color flow Doppler. Location: Bedside. Patient status: Inpatient. Patient room number: 445-02. No prior study is available for comparison. Rhythm: Normal sinus rhythm with PVC's. Findings Left ventricle: The cavity size is below normal. Wall thickness is mildly increased. Systolic function is normal. The estimated ejection fraction is 55-60%. Wall motion is normal; there are no regional wall motion abnormalities. Doppler parameters are consistent with abnormal left ventricular relaxation (grade 1 diastolic dysfunction). Right ventricle: The cavity size is normal. Wall thickness is mildly increased. Systolic function is normal. Systolic pressure cannot be accurately determined, but appears to be increased. Left atrium: The atrium is at the upper limits of normal in size. Right atrium: The atrium is normal in size. Mitral valve: The leaflets are mildly thickened. There is no evidence of stenosis. There is trace regurgitation. Aortic valve: The annulus is mildly calcified. The valve is trileaflet. The leaflets are mildly thickened. There is no evidence of stenosis. There is trace regurgitation. Tricuspid valve: The leaflets are normal thickness. There is no evidence of stenosis. There is trace regurgitation. Pulmonic valve: The leaflets are normal thickness. There is no evidence of stenosis. There is trace regurgitation. Aorta: Aortic root: The aortic root is mildly dilated. Ascending aorta: The ascending aorta is moderately dilated. Aortic arch: The aortic arch is mildly dilated. Pericardium: There is no significant pericardial effusion. Pulmonary arteries: The main pulmonary artery is normal-sized. Systolic pressure can not be accurately estimated. Systemic veins: Inferior vena cava: The vessel is normal in size. There is (>= 50%) respiratory change in the IVC dimension. Measurements Left ventricle Value Ref Right atrium Value Ref CALEB, LAX (L) 3.4 cm 3.8 - 5.2 SI dim, ES 3.7 cm 3.4 - 5.3 ESD, LAX 2.4 cm 2.2 - 3.5 ML dim, ES, A4C 3.3 cm 2.6 - 4.4 FS, LAX 29 % 27 - 45 Estimated RAP 3 mm Hg --------- PW, ED, LAX (H) 1.1 cm 0.6 - 0.9 FS 29 % 45 Aortic valve Value Ref PW, ED (H) 1.1 cm 0.6 - 0.9 Clint diam, ED 2.1 cm --------- E', lat clint, TDI (L) 4.9 cm/sec >=10.0 Peak v, S 1.05 m/sec --- ------ E/e', lat clint, 13 VTI, S 21.5 cm ------ --- TDI Mean grad, S 2.0 mm Hg --------- E', med clint, TDI (L) 3.6 cm/sec >=7.0 Peak grad, S 4.0 mm Hg --- ------ E/e', med clint, 18 LVOT/AV, VTI ratio 0.93 ------ --- TDI GREGORY, VTI 2.92 cm^2 --------- E', avg, TDI 4.3 cm/sec GREGORY, Vmax 2.62 cm^2 ------ --- E/e', avg, TDI (H) 16 <=14 Mitral valve Value Ref LVOT Value Ref Peak E 0.66 m/sec --------- Diam, S 2.00 cm Peak A 1.21 m/sec --------- Area 3.1 cm^2 Decel time 137 ms --------- Peak lucia, S 0.88 m/sec Peak E/A ratio 0.5 --------- VTI, S 20.0 cm Mean grad, S 2 mm Hg Pulmonic valve Value Ref SV 63 ml Peak v, S 1.03 m/sec --------- SV/bsa 41 ml/m^2 Peak grad, S 4.0 mm Hg --------- Ventricular septum Value Ref Aortic root Value Ref IVS, ED (H) 1.2 cm 0.6 - 0.9 Root diam (H) 3.9 cm <3.8 Right ventricle Value Ref Ascending aorta Value Ref AW thickness, ED (H) 0.8 cm 0.1 - 0.5 AAo AP diam, S 4.2 cm --------- CALEB, LAX 3.2 cm CALEB minor ax, 3.2 cm 1.9 - 3.5 Aortic arch Value Ref A4C mid Arch diam 2.2 cm --------- Left atrium Value Ref Decending aorta Value Ref AP dim, ES 2.90 cm 2.70 - Jasen peak ulcia 0.64 m/sec --------- 3.80 ML dim, A4C 3.7 cm Inferior vena cava Value Ref SI dim, A4C 4.9 cm Diam 1.6 cm --------- Vol/bsa, ES, 1-p 17 ml/m^2 11 - 40 A4C Vol/bsa, ES, A/L 34 ml/m^2 16 - 34 Legend: (L) and (H) mt values outside specified reference range. Prepared and electronically signed by Herberth Mathis MD 09/11/2019 11:23
[2019-09-11 17:00] VITALS: BP 144/79
--- NOTE | 2019-09-12 03:34 | DS ---
CC: Dr. Celia Moraes * DISCHARGE SUMMARY: DATE OF ADMISSION: 09/10/19 DATE OF DISCHARGE: 09/11/19 PRIMARY CARE PROVIDER: Dr. Celia Moraes. DISPOSITION AT DISCHARGE: Home. CONDITION AT DISCHARGE: Stable. DISCHARGE DIAGNOSIS: Nausea and vomiting as well as symptoms of dysuria likely due to urinary tract infection with urine cultures positive for over 100,000 colonies of Klebsiella pneumoniae, sensitivities pending. SECONDARY DIAGNOSES: 1. History of chronic dyspnea, on oxygen at 2 L continuously. 2. Chronic anemia. 3. Hypertension. 4. Hypothyroidism. 5. History of rheumatic fever. 6. Vitamin D deficiency. 7. Thoracic aortic aneurysm. 8. Obstructive sleep apnea. 9. Chronic kidney disease, stage 2. 10. Hyperlipidemia. 11. Depression. 12. Anxiety. 13. History of migraines. MEDICATIONS AT DISCHARGE: Include 1. Ciprofloxacin 500 mg b.i.d. for total of 5 days. Remaining medications are unchanged and include: 1. Anastrozole 1 mg daily. 2. Lipitor 20 mg daily. 3. BuSpar 15 mg b.i.d. 4. Fioricet 1 tablet every 4 hours p.r.n. 5. Vitamin D3 5000 units daily. 6. Cartia XT 120 mg daily. 7. Cymbalta 120 mg daily. 8. TriCor 145 mg at bedtime. 9. Folic acid 400 mcg at bedtime. 10. Hydrochlorothiazide 12.5 mg daily. 11. Synthroid 75 mcg daily. 12. Cozaar 50 mg daily. 13. Mag-Ox 400 mg daily. 14. Meloxicam 7.5 mg daily p.r.n. 15. Mirabegron 25 mg daily. 16. Nortriptyline 150 mg at bedtime. 17. [place]-3 fatty acids 2 g b.i.d. 18. Simethicone 125 mg up to 3 times a day p.r.n. LABORATORY DATA AND STUDIES PERFORMED DURING HOSPITAL STAY: On 09/11/19, sodium of 137, potassium 4.6, chloride 107, carbon dioxide 25, BUN 17, creatinine 1.2. Iron studies showed iron level of 90, TIBC of 367, percent iron saturation of 25, transferrin of 262, ferritin of 18.2, vitamin B12 level of 796, folate of above 20. The patient's troponin continued to be at 0.03 x3. White blood cell count of 3.3, hemoglobin of 10.7, hematocrit of 31, and platelets of 187 that was obtained on 09/11/19. The patient's D-dimer was below 200, PTT of 32 and INR of 1.09 at admission. Urinalysis showed cloudy urine, positive nitrites, esterase, wbc's, absent bacteria. Influenza testing was negative. Abdomen x-ray obtained at admission, impression: "There are few scattered air fluid levels within the small bowel and colon, which is nondistended. This is nonspecific gas pattern, could be suggestive of gastroenteritis and less likely a low-grade partial obstruction." Portal chest x-ray at admission, impression: "No evidence of active cardiopulmonary disease." Transesophageal echocardiogram obtained on 09/10/19 showed EF of 55% to 60% with no regional wall motion abnormalities with trace tricuspid regurgitation and trace mitral regurgitation. HOSPITALIZATION COURSE: Dalia Johnson is a 78-year-old female with history of chronic dyspnea, for which she is on oxygen continuously at 2 L, with a history of recurrent UTIs and she presented to the hospital complaining of nausea, not feeling well, not eating well and dysuria. She is currently undergoing workup with her automatic engraver to rule out chronic PEs. She was admitted to the hospital for UTI. She was treated with Zosyn with good result. She was also noted to have troponin of 0.03, which continues to be her baseline with unremarkable echocardiogram. She had a workup for her anemia, which disclosed normal iron, vitamin B12, folate levels. It could be anemia of chronic disease. The patient does have history of chronic kidney disease, stage 3. Her stool was negative for blood. She is recommended to continue her iron supplement that she was prescribed by her primary care provider on a daily basis. She was evaluated by Physical Therapy and she was noted to be unsteady, but then later on she admitted that she had been walker at home and her unsteadiness is her baseline. She required 2 L of oxygen throughout her hospital stay. By the time of discharge, her symptoms are improved, although she still feels a little bit nauseated. She was able to eat her meals without any problems. She is going to be discharged home with recommendations to follow up with her primary care provider in approximately 4 to 7 days. Please note that the sensitivities to Klebsiella pneumoniae UTI are not back yet and she was empirically started on ciprofloxacin. PHYSICAL EXAM AT THE TIME OF DISCHARGE: Blood pressure 153/73, heart rate of 77 and regular, respiratory rate 18, oxygen saturation 100% on 2 L of oxygen via nasal cannula, temperature 97.4. General: The patient is a very pleasant 78-year-old female who is in no acute distress. The patient is alert and oriented x3. HEENT: Head atraumatic, normocephalic. Eyes: Pupils equal and reactive to light and accommodation. Oropharynx clear. Mucosa moist. Neck: Supple. No JVD. No bruits bilaterally. Cardiovascular: Regular rate and rhythm. No murmur. Respiratory: Clear to auscultation bilaterally. Abdomen: Soft, nontender. Bowel sounds present in all 4 quadrants. There is no CVA tenderness on palpation. Extremities: There is no edema. Pulses +2 bilaterally. No clubbing or cyanosis. Neuro Evaluation: Speech clear. Cranial nerves II through XII grossly intact. Motor strength is 5/5 bilaterally. FOLLOWUP: At discharge, the patient is recommended to follow up with primary care provider in 4 to 7 days. Please note this is a short summary of the patient 's hospital stay. Please refer to further medical records for details. TIME SPENT: Approximately 35 minutes was spent on patient's discharge. [id number]/[facility] #: [id number] [facility]USNevaeh
== END 2019-09-11 17:02 | disposition home or self-care (01) ==
LOC: ED 11:12 → MEDTELE 15:05
PROVIDERS: ADMIT Internal Medicine; ATTEND Internal Medicine
DX: N39.0 Urinary tract infection, site not specified (principal); B96.1 Klebsiella pneumoniae [K. pneumoniae] as the cause of diseases classified elsewhere; R11.2 Nausea with vomiting, unspecified; I12.9 Hypertensive chronic kidney disease with stage 1 through stage 4 chronic kidney disease, or unspecified chronic kidney disease; R06.00 Dyspnea, unspecified; D64.9 Anemia, unspecified; E03.9 Hypothyroidism, unspecified; E55.9 Vitamin D deficiency, unspecified; I71.2 Thoracic aortic aneurysm, without rupture; N18.2 Chronic kidney disease, stage 2 (mild); K21.9 Gastro-esophageal reflux disease without esophagitis; F32.9 Major depressive disorder, single episode, unspecified; F41.9 Anxiety disorder, unspecified; Z86.19 Personal history of other infectious and parasitic diseases; Z85.42 Personal history of malignant neoplasm of other parts of uterus; Z79.899 Other long term (current) drug therapy; Z85.3 Personal history of malignant neoplasm of breast; Z88.2 Allergy status to sulfonamides; Z88.5 Allergy status to narcotic agent; Z88.6 Allergy status to analgesic agent; R94.31 Abnormal electrocardiogram [ECG] [EKG]
CPT/HCPCS: 36415; 71046; 74019; 80048; 80053; 80061; 81003; 81015; 82270; 82550; 82607; 82728; 82746; 83036; 83540; 83550; 83605; 83690; 83735; 83880; 84443; 84484; 85025; 85379; 85610; 85730; 86140; 87077; 87086; 87186; 93306; 96365; 96366; 96367; 96372; 96375; 99285; A9270-GY; G0378; J0696; J1644; J2185; J2405; J2543

== ENCOUNTER 2019-09-28 14:24 | Emergency (ER) | payer MEDICARE, BC ==
[2019-09-28 15:50] LABS: ABS Eosinophils 0.1 10^3/ul (0-0.6); ABS Monocytes 0.6 10^3/ul (0-0.8); ABS Neutrophils 2.2 10^3/ul (1.5-7.7); Eosinophil % 2.1 %; Hematocrit 33 % (35-47); Hemoglobin 11.2 g/dL (12.0-16.0); Lymphocyte % 26.7 %; Mean Corpuscular HGB Conc 34 g/dL (31-36); Mean Corpuscular Hemoglobin 32 pg (27-31); Mean Corpuscular Volume 93 fL (80-97); Mean Platelet Volume 8.2 fL (7.4-10.4); Platelet Count 209 10^3/uL (150-450); Red Blood Count 3.53 10^6 /uL (3.70-4.87); Red Cell Distribution Width 14 % (10-15); White Blood Count 3.9 10^3/uL (3.5-10.8)
[2019-09-28 16:02] LABS: INR 1.04 (0.82-1.09)
[2019-09-28 16:11] LABS: Troponin I 0.02 ng/mL (<0.03)
[2019-09-28 16:22] LABS: Albumin 4.2 g/dL (3.2-5.2); Albumin/Globulin Ratio 1.8 (1-3); BUN/Creatinine Ratio 28.7 (8-20); Calcium 9.7 mg/dL (8.6-10.3); EGFR African American 48.2 (>60); EGFR Non-African American 39.9 (>60); Globulin 2.4 g/dL (2-4); Total Bilirubin 0.3 mg/dL (0.2-1.0); Total Protein 6.6 g/dL (6.4-8.9)
[2019-09-28 16:30] LABS: Potassium 5.2 mmol/L (3.5-5.0)
[2019-09-28] MEDS ORDERED: Iodixanol* (CONTRAST) 320 MG/ML 100 ML SDV IV ONE (16:38)
--- NOTE | 2019-09-28 17:10 | ED ---
Shortness of Breath - HPI Summary HPI Summary: Patient is a 78 y/o F presenting to [facility] with complaints of SOB. Per patient and , patient has had worsened SOB for the past month. Patient had a VQ scan yesterday, 09/27/19, which resulted indeterminate risk. She was sent to ED for further workup (CTA). The patient states that she has been on O2 for over a year; she was only on O2 at night but was recently placed on O2 for 24hrs daily two weeks ago. The patient notes that she has had 15 surgeries since 2001 but denies Hx of PE. Home medications and allergies are reviewed. No fever as vitals show temperature of 96.7 F. Home Medications Medication Instructions Recorded Confirmed Type Cholecalciferol (Vitamin D3) 5,000 unit PO DAILY 01/03/13 09/10/19 History [Vitamin D3] Levothyroxine TAB* [Synthroid 100 75 mcg PO DAILY 01/03/13 09/10/19 History MCG TAB*] Anastrozole (NF) [Arimidex (NF)] 1 mg PO DAILY 09/10/19 09/10/19 History Atorvastatin* [Lipitor 20 MG*] 20 mg PO DAILY 09/10/19 09/10/19 History Butalb/Acetamin/Caff TAB* 1 tab PO Q4H PRN 09/10/19 09/10/19 History [Fioricet TAB*] DULoxetine CAP* [Cymbalta CAP*] 120 mg PO DAILY 09/10/19 09/10/19 History Fenofibrate(NF) [Tricor(NF)] 145 mg PO BEDTIME 09/10/19 09/10/19 History Folic Acid TAB* [Folvite TAB*] 400 mcg PO BEDTIME 09/10/19 09/10/19 History Hydrochlorothiazide TAB* 12.5 mg PO EVERY OTHER DAY 09/10/19 09/10/19 History [Hydrodiuril TAB*] Losartan TAB* [Cozaar TAB*] 50 mg PO DAILY 09/10/19 09/10/19 History Magnesium Oxide TAB* [MagOx 400 400 mg PO DAILY 09/10/19 09/10/19 History TAB*] Meloxicam(NF) [Mobic(NF)] 7.5 mg PO DAILY 09/10/19 09/10/19 History Mirabegron (NF) [Myrbetriq (NF)] 25 mg PO DAILY 09/10/19 09/10/19 History Nortriptyline CAP* [Pamelor CAP*] 150 mg PO BEDTIME 09/10/19 09/10/19 History [place]-3 Acid Ethyl Esters 2 gm PO BID 09/10/19 09/10/19 History Simethicone [Gas Relief] 125 mg PO TID 09/10/19 09/10/19 History busPIRone TAB* [Buspar TAB *] 15 mg PO BID 09/10/19 09/10/19 History dilTIAZem HCl [Cartia Xt] 120 mg PO DAILY 09/10/19 09/10/19 History Ciprofloxacin TAB* [Cipro 500 MG 500 mg PO BID #10 tab 09/11/19 Rx TAB*] - History of Current Complaint Chief Complaint: EDShortnessOfBreath Time Seen by Provider: 09/28/19 17:04 Hx Obtained From: Patient Onset/Duration: Lasting Weeks, Still Present, Worse Since Timing: Constant Associated Signs & Symptoms: Negative - Allergy/Home Medications Allergies/Adverse Reactions: Allergies Allergy/AdvReac Type Severity Reaction Status Date / Time codeine Allergy See Comment Verified 09/10/19 14:54 oxycodone [From Percocet] Allergy Hallucinati Verified 09/10/19 14:54 ons Sulfa (Sulfonamide Allergy Nausea Verified 09/10/19 14:54 Antibiotics) tramadol Allergy See Comment Verified 09/10/19 14:54 environmental Allergy See Comment Uncoded 09/10/19 11:32 Home Medications: Home Medications Cholecalciferol (Vitamin D3) [Vitamin D3] 5,000 unit PO DAILY 01/03/13 [History Confirmed 09/28/19] Levothyroxine TAB* [Synthroid 100 MCG TAB*] 75 mcg PO DAILY 01/03/13 [History Confirmed 09/28/19] Anastrozole (NF) [Arimidex (NF)] 1 mg PO DAILY 09/10/19 [History Confirmed 09/28] Atorvastatin* [Lipitor 20 MG*] 20 mg PO DAILY 09/10/19 [History Confirmed ] Butalb/Acetamin/Caff TAB* [Fioricet TAB*] 1 tab PO Q4H PRN 09/10/19 [History Confirmed 09/28/19] DULoxetine DR CAP* [Cymbalta CAP*] 120 mg PO DAILY 09/10/19 [History Confirmed 09/28/19] Fenofibrate(NF) [Tricor(NF)] 145 mg PO BEDTIME 09/10/19 [History Confirmed 09/28] Folic Acid TAB* [Folvite TAB*] 400 mcg PO BEDTIME 09/10/19 [History Confirmed ] Hydrochlorothiazide TAB* [Hydrodiuril TAB*] 12.5 mg PO EVERY OTHER DAY 09/10/19 [History Confirmed 09/28/19] Losartan TAB* [Cozaar TAB*] 50 mg PO DAILY 09/10/19 [History Confirmed 09/28/19] Magnesium Oxide TAB* [MagOx 400 TAB*] 400 mg PO DAILY 09/10/19 [History Confirmed 09/28/19] Meloxicam(NF) [Mobic(NF)] 7.5 mg PO DAILY 09/10/19 [History Confirmed 09/28/19] Mirabegron (NF) [Myrbetriq (NF)] 25 mg PO DAILY 09/10/19 [History Confirmed ] Nortriptyline CAP* [Pamelor CAP*] 150 mg PO BEDTIME 09/10/19 [History Confirmed 09/28/19] [place]-3 Acid Ethyl Esters 2 gm PO BID 09/10/19 [History Confirmed 09/28/19] Simethicone [Gas Relief] 125 mg PO TID 09/10/19 [History Confirmed 09/28/19] busPIRone TAB* [Buspar TAB *] 15 mg PO BID 09/10/19 [History Confirmed 09/28/19] dilTIAZem HCl [Cartia Xt] 120 mg PO DAILY 09/10/19 [History Confirmed 09/28/19] PMH/Surg Hx/FS Hx/Imm Hx Endocrine/Hematology History: Reports: Hx Thyroid Disease, Hx Anemia - HISTORY OF ANEMIA Denies: Hx Diabetes Cardiovascular History: Reports: Hx Hypertension, Hx Rheumatic Fever - 1948, Other Cardiovascular Problems/Disorders - HIGH CHOLESTEROL AND AORTIC ANEURYSM Respiratory History: Reports: Hx Sleep Apnea GI History: Reports: Hx Gastroesophageal Reflux Disease, Hx Hiatal Hernia Musculoskeletal History: Reports: Hx Arthritis - HANDS, Hx Tendonitis, Other Musculoskeletal History - SPINAL STENOSIS AND SCLOSIS Sensory History: Reports: Hx Cataracts, Hx Contacts or Glasses - READING Denies: Hx Legally Blind, Hx Deafness, Hx Hearing Aid Opthamlomology History: Reports: Hx Cataracts, Hx Contacts or Glasses - READING Denies: Hx Legally Blind Neurological History: Reports: Hx Migraine - on prn medication, Other Neuro Impairments/Disorders - FIBROMYLAGIA Psychiatric History: Reports: Hx Depression Denies: Hx Anxiety, Hx Attention Deficit Hyperactivity Disorder, Hx Eating Disorder, Hx Panic Disorder, Hx Post Traumatic Stress Disorder, Hx Inpatient Treatment, Hx Community Mental Health Tx, Hx Schizophrenia, Hx Bipolar Disorder , Hx Suicide Attempt, Hx of Violent Episodes Against Others, Hx Substance Abuse , Other Psychiatric Issues/Disorders - Surgical History Surgery Procedure, Year, and Place: TONSILLECTOMY 194. APPENDECTOMY 2007. RIGHT KNEE 2010. RTK 2010. RIGHT KNEE QUAD TENDON REPAIR. CATARACT 5 YEARS AGO [facility]. BTL 1974 Hx Anesthesia Reactions: Yes - VOMITING Infectious Disease History: No Infectious Disease History: Reports: Hx Shingles Denies: Hx Clostridium Difficile, Hx Hepatitis, Hx Human Immunodeficiency Virus (HIV), Hx Tuberculosis, Traveled Outside the [place] in Last 30 Days - Family History Known Family History: Positive: Cardiac Disease, Diabetes, Other - CA. - Social History Alcohol Use: Rare Hx Substance Use: No Substance Use Type: Reports: None Hx Tobacco Use: No Smoking Status (MU): Never Smoked Tobacco Review of Systems Negative: Fever - No fever as vitals show temperature of 96.7 F. Positive: Shortness Of Breath All Other Systems Reviewed And Are Negative: Yes Physical Exam - Summary Physical Exam Summary: Constitutional: Well-developed, Well-nourished, Alert. (-) Distressed Skin: Warm, Dry HENT: Normocephalic; Atraumatic Eyes: Conjunctiva normal Neck: Musculoskeletal ROM normal neck. (-) JVD, (-) Stridor, (-) Nuchal rigidity Cardio: Rhythm regular, rate normal, Heart sounds normal; Intact distal pulses; Radial pulses are 2+ and symmetric. (-) Murmur Pulmonary/Chest wall: Effort normal. (-) Respiratory distress, (-) Wheezes, (-) Rales Abd: Soft, (-) tenderness, (-) Distension, (-) Guarding, (-) Rebound Musculoskeletal: (-) Edema Lymph: (-) Cervical adenopathy Neuro: Alert, Oriented x3 Psych: Mood and affect Normal Triage Information Reviewed: Yes Vital Signs On Initial Exam: Initial Vitals Temp Pulse Resp BP Pulse Ox 96.7 F 90 18 146/87 100 09/28/19 14:35 09/28/19 14:35 09/28/19 14:35 09/28/19 14:35 09/28/19 14:35 Vital Signs Reviewed: Yes Procedures - Sedation Patient Received Moderate/Deep Sedation with Procedure: No Diagnostics - Vital Signs Vital Signs Temp Pulse Resp BP Pulse Ox 09/28/19 14:35 96.7 F 90 18 146/87 100 - Laboratory Lab Results: Lab Results 09/28/19 09/28/19 09/28/19 Range/Units 15:39 15:39 15:39 WBC 3.9 (3.5-10.8) 10^3/uL RBC 3.53 L (3.70-4.87) 10^6 /uL Hgb 11.2 L (12.0-16.0) g/dL Hct 33 L (35-47) % MCV 93 (80-97) fL MCH 32 H (27-31) pg MCHC 34 (31-36) g/dL RDW 14 (10-15) % Plt Count 209 (150-450) 10^3/uL MPV 8.2 (7.4-10.4) fL Neut % (Auto) 55.6 % Lymph % (Auto) 26.7 % [place] % (Auto) 14.9 % Eos % (Auto) 2.1 % Baso % (Auto) 0.7 % Absolute Neuts (auto) 2.2 (1.5-7.7) 10^3/ul Absolute Lymphs (auto) 1.0 (1.0-4.8) 10^3/ul Absolute Monos (auto) 0.6 (0-0.8) 10^3/ul Absolute Eos (auto) 0.1 (0-0.6) 10^3/ul Absolute Basos (auto) 0.0 (0-0.2) 10^3/ul Absolute Nucleated RBC 0.0 10^3/ul Nucleated RBC % 0.0 INR (Anticoag Therapy) 1.04 (0.82-1.09) Sodium 133 L (135-145) mmol/L Potassium 5.2 H (3.5-5.0) mmol/L Chloride 101 (101-111) mmol/L Carbon Dioxide 26 (22-32) mmol/L Anion Gap 6 (2-11) mmol/L BUN 37 H (6-24) mg/dL Creatinine 1.29 H (0.51-0.95) mg/dL Est GFR ( Amer) 48.2 (>60) Est GFR (Non-Af Amer) 39.9 (>60) BUN/Creatinine Ratio 28.7 H (8-20) Glucose 115 H (70-100) mg/dL Calcium 9.7 (8.6-10.3) mg/dL Total Bilirubin 0.30 (0.2-1.0) mg/dL AST 23 (13-39) U/L ALT 11 (7-52) U/L Alkaline Phosphatase 54 (34-104) U/L Troponin I 0.02 (<0.03) ng/mL Total Protein 6.6 (6.4-8.9) g/dL Albumin 4.2 (3.2-5.2) g/dL Globulin 2.4 (2-4) g/dL Albumin/Globulin Ratio 1.8 (1-3) Result Diagrams: 09/28/19 15:39 09/28/19 15:39 Lab Statement: Any lab studies that have been ordered have been reviewed, and results considered in the medical decision making process. - CT CTA CHEST/THORAX CT Interpretation Completed By: Radiologist Summary of CT Findings: IMPRESSION: 1. No visible acute pulmonary embolism. 2. There is a small hiatal hernia. THIS REPORT WAS REVIEWED BY ED PHYSICIAN. - EKG 1444 Cardiac Rate: NL - rate of 82 BPM EKG Rhythm: Sinus Rhythm Summary of EKG Findings: EKG showed sinus rhythm with rate of 82 BPM, T-wave inversion in V1. ED physician has reviewed and interpreted this EKG. Course/Dx - Course Course Of Treatment: 78 y/o F p/w abnormla VQ scan. Labs here notable for normal trop, CKD. CTA chest w/o PE. Ambulating w her 3L baseline O2. Will f/u w pulmonology - Diagnoses Provider Diagnoses: SOB (shortness of breath) Discharge ED - Sign-Out/Discharge Documenting (check all that apply): Patient Departure - DISCHARGE - Discharge Plan Condition: Stable Disposition: HOME Patient Education Materials: Shortness of Breath (ED) Referrals: Celia Moraes MD [Primary Care Provider] - 3 Days Additional Instructions: You were seen in the emergency department for an abnormal VQ scan. Your CT did not show any evidence of pulmonary embolism. Please follow up with your primary care doctor in next 2-3 days and return to emergency department for trouble breathing, chest pain, worsening or concerning symptoms. It was a pleasure taking care of you today. - Billing Disposition and Condition Condition: STABLE Disposition: Home - Attestation Statements Document Initiated by Jerrod: Yes Documenting Scribe: ADAM MERCER Provider For Whom Jerrod is Documenting (Include Credential): DELIO GIL MD Scribe Attestation: I, ADAM MERCER, scribed for DELIO GIL MD on 10/01/19 at 0704. Scribe Documentation Reviewed: Yes Provider Attestation: The documentation as recorded by the ADAM mcneill accurately reflects the service I personally performed and the decisions made by , DELIO GIL MD Status of Scribe Document: Viewed
[2019-09-28 19:11] VITALS: BP 150/88
== END 2019-09-28 19:25 | disposition home or self-care (01) ==
LOC: ED 14:24
DX: R06.02 Shortness of breath (principal); K44.9 Diaphragmatic hernia without obstruction or gangrene; E03.9 Hypothyroidism, unspecified; D64.9 Anemia, unspecified; I10 Essential (primary) hypertension; E78.00 Pure hypercholesterolemia, unspecified; K21.9 Gastro-esophageal reflux disease without esophagitis; M79.7 Fibromyalgia; F32.9 Major depressive disorder, single episode, unspecified; Z90.89 Acquired absence of other organs; Z96.651 Presence of right artificial knee joint; Z79.890 Hormone replacement therapy; Z79.899 Other long term (current) drug therapy; Z88.2 Allergy status to sulfonamides; Z88.5 Allergy status to narcotic agent
CPT/HCPCS: 36415; 71275; 80053; 84484; 85025; 85610; 93005; 99284; Q9967

== ENCOUNTER 2021-05-21 13:47 | Observation (INO) ==
[2021-05-21 14:51] LABS: ABS Eosinophils 0.1 10^3/ul (0-0.6); ABS Monocytes 0.5 10^3/ul (0-0.8); ABS Neutrophils 5.2 10^3/ul (1.5-7.7); Eosinophil % 1.3 %; Hematocrit 38 % (35-47); Hemoglobin 12.6 g/dL (12.0-16.0); Lymphocyte % 14.7 %; Mean Corpuscular HGB Conc 33 g/dL (31-36); Mean Corpuscular Hemoglobin 32 pg (27-31); Mean Corpuscular Volume 95 fL (80-97); Mean Platelet Volume 8.8 fL (7.4-10.4); Platelet Count 351 10^3/uL (150-450); Red Blood Count 3.98 10^6 /uL (3.70-4.87); Red Cell Distribution Width 14 % (10-15); White Blood Count 6.9 10^3/uL (3.5-10.8)
[2021-05-21 15:02] LABS: INR 1.12 (0.86-1.15)
[2021-05-21 15:13] LABS: ALT 16 U/L (7-52); Albumin 4.2 g/dL (3.2-5.2); Albumin/Globulin Ratio 1.5 (1-3); Alkaline Phosphatase 75 U/L (35-149); Blood Urea Nitrogen 25 mg/dL (6-24); C Reactive Protein 29.91 mg/L (<8.01); CO2 Carbon Dioxide 26 mmol/L (22-32); Chloride 101 mmol/L (101-111); Globulin 2.8 g/dL (2-4); Glucose 115 mg/dL (70-100); Sodium 135 mmol/L (135-145)
[2021-05-21 15:20] LABS: Anion Gap 8 mmol/L (2-11)
[2021-05-21 15:49] LABS: Troponin I 0.04 ng/mL (<0.03)
[2021-05-21] MEDS ORDERED: NS 0.9% 1000 ml BAG 1,000 ML IV ONE (17:06)
[2021-05-21 18:32] LABS: Troponin I 0.04 ng/mL (<0.03)
[2021-05-21] MEDS ORDERED: Butalb/Acetamin/Caff TAB 325-50-40MG PO ONE (18:49)
[2021-05-21 19:13] LABS: Rapid COVID-19 Molecular Undetected (Undetected)
[2021-05-21 20:53] LABS: Troponin I 0.04 ng/mL (<0.03)
[2021-05-21 22:30] LABS: Magnesium 1.9 mg/dL (1.9-2.7); Potassium Redraw 4.3 mmol/L (3.5-5.0)
[2021-05-21 22:36] LABS: AST Redraw 27 U/L (13-39); Cholesterol 153 mg/dL; HDL Cholesterol 47.3 mg/dL; LDL Cholesterol 76 mg/dL; Triglycerides 150 mg/dL
[2021-05-22] MEDS: Enoxaparin 30 MG/0.3 ML SYR SUBCUT SCH ×2 (01:19→21:25)
[2021-05-22] MEDS: Nortriptyline 25 mg TAB PO SCH ×2 (01:24→21:16)
[2021-05-22 06:30] LABS: ABS Eosinophils 0.1 10^3/ul (0-0.6); ABS Lymphocytes 1.1 10^3/ul (1.0-4.8); ABS Monocytes 0.4 10^3/ul (0-0.8); ABS Neutrophils 3.3 10^3/ul (1.5-7.7); Eosinophil % 1.5 %; Hematocrit 32 % (35-47); Hemoglobin 10.8 g/dL (12.0-16.0); Lymphocyte % 22.3 %; Mean Corpuscular HGB Conc 34 g/dL (31-36); Mean Corpuscular Hemoglobin 32 pg (27-31); Mean Corpuscular Volume 95 fL (80-97); Mean Platelet Volume 8.6 fL (7.4-10.4); Platelet Count 225 10^3/uL (150-450); Red Blood Count 3.38 10^6 /uL (3.70-4.87); Red Cell Distribution Width 14 % (10-15); White Blood Count 4.9 10^3/uL (3.5-10.8)
[2021-05-22 06:40] LABS: Albumin 3.2 g/dL (3.2-5.2); CO2 Carbon Dioxide 18 mmol/L (22-32); Calcium 8.9 mg/dL (8.6-10.3); Chloride 108 mmol/L (101-111); Sodium 133 mmol/L (135-145)
[2021-05-22 06:46] LABS: ALT 10 U/L (7-52); Albumin/Globulin Ratio 1.3 (1-3); Alkaline Phosphatase 63 U/L (35-149); Blood Urea Nitrogen 20 mg/dL (6-24); Cholesterol 147 mg/dL; Globulin 2.4 g/dL (2-4); Glucose 104 mg/dL (70-100); HDL Cholesterol 44.9 mg/dL; LDL Cholesterol 52 mg/dL; Total Protein 5.6 g/dL (6.4-8.9); Triglycerides 251 mg/dL
[2021-05-22 07:26] LABS: AST 27 U/L (13-39); Anion Gap 7 mmol/L (2-11); Indirect Bilirubin 0.3 mg/dL (0.3-1.0); Potassium 4.7 mmol/L (3.5-5.0)
[2021-05-22] MEDS: Fluticasone NASAL SPRAY 50MCG 16 gm SPRAY BTL INTRANASAL SCH (08:32)
[2021-05-22] MEDS: CMC:Anastrozole 1 mg TAB (NF) PO SCH (08:32)
[2021-05-22] MEDS: Aspirin EC 81 mg TAB.EC (enteric coated) PO SCH (08:33)
[2021-05-22] MEDS: DULoxetine DR 60 mg CAP PO SCH (08:33)
[2021-05-22] MEDS: Cholecalciferol (VIT D3) 1,000 unit TAB PO SCH (08:33)
[2021-05-22] MEDS: CMC:OMEGA-3 FATTY ACID 1000 mg(NF) PO SCH ×2 (08:33→21:16)
[2021-05-22] MEDS: Mirabegron 25 mg ER TAB (NF) PO SCH (08:35)
[2021-05-22 10:13] LABS: % Iron Saturation 28 % (15-55); Iron 107 ug/dL (50-212); Total Iron Binding Capacity 388 mcg/dL (250-450); Transferrin 277 mg/dL (203-362); Unsaturated Iron Binding < 373 ug/dL
[2021-05-22 10:35] LABS: Ferritin 20.7 ng/mL (11-307)
[2021-05-22 10:39] LABS: Vitamin B12 482 pg/mL (180-914)
[2021-05-22] MEDS ORDERED: Perflutren Lipid Microsphere 3 ML VIAL ONE (11:09)
[2021-05-22] MEDS ORDERED: Ondansetron 4 mg VIAL 2 MG/ML 2 ml VIAL ONE (15:24)
[2021-05-22] MEDS ORDERED: Regadenoson 0.4 MG/5 ML SYRINGE ONE (15:24)
[2021-05-22] MEDS ORDERED: CMC:Fenofibrate 145 mg TAB (NF) PO SCH (21:00)
[2021-05-22] MEDS: Butalb/Acetamin/Caff TAB 325-50-40MG PO PRN (21:20)
[2021-05-23 07:34] LABS: ABS Eosinophils 0.1 10^3/ul (0-0.6); ABS Lymphocytes 0.8 10^3/ul (1.0-4.8); ABS Monocytes 0.3 10^3/ul (0-0.8); ABS Neutrophils 1.6 10^3/ul (1.5-7.7); Eosinophil % 3.1 %; Hematocrit 29 % (35-47); Lymphocyte % 28.1 %; Mean Corpuscular HGB Conc 34 g/dL (31-36); Mean Corpuscular Hemoglobin 33 pg (27-31); Mean Corpuscular Volume 95 fL (80-97); Mean Platelet Volume 8.6 fL (7.4-10.4); Nucleated Red Blood Cells % 0.1; Platelet Count 202 10^3/uL (150-450); Red Blood Count 3.08 10^6 /uL (3.70-4.87); Red Cell Distribution Width 14 % (10-15); White Blood Count 2.8 10^3/uL (3.5-10.8)
[2021-05-23 07:50] LABS: Calcium 9.3 mg/dL (8.6-10.3); Magnesium 1.9 mg/dL (1.9-2.7); Potassium 4.8 mmol/L (3.5-5.0)
[2021-05-23] MEDS: CMC:Anastrozole 1 mg TAB (NF) PO SCH (09:20)
[2021-05-23] MEDS: Butalb/Acetamin/Caff TAB 325-50-40MG PO PRN ×2 (09:22→14:51)
[2021-05-23] MEDS: CMC:OMEGA-3 FATTY ACID 1000 mg(NF) PO SCH (09:22)
[2021-05-23] MEDS: Cholecalciferol (VIT D3) 1,000 unit TAB PO SCH (09:23)
[2021-05-23] MEDS: DULoxetine DR 60 mg CAP PO SCH (09:23)
[2021-05-23] MEDS: Aspirin EC 81 mg TAB.EC (enteric coated) PO SCH (09:24)
[2021-05-23] MEDS: Mirabegron 25 mg ER TAB (NF) PO SCH (09:25)
[2021-05-23] MEDS ORDERED: Magnesium Sulfate IV 1GM/100ML 1 GM/100 ML BAG IV ONE (09:26)
[2021-05-23] MEDS: Fluticasone NASAL SPRAY 50MCG 16 gm SPRAY BTL INTRANASAL SCH (09:39)
[2021-05-23] MEDS ORDERED: SPIRIVA Respimat (tiotropium) 2.5 mcg/inh Inhaler INH SCH (14:00)
[2021-05-23 16:12] VITALS: BP 135/72
== END 2021-05-23 16:45 | disposition home or self-care (01) ==
LOC: ED 13:47 → MED 13:47 → SUATTDRO 22:58 → MED 23:25
PROVIDERS: ADMIT Internal Medicine; ATTEND Internal Medicine